=== PATIENT | female | born 1950 | race Caucasian/White ===

== ENCOUNTER → 2016-07-25 | Outpatient (CLI) | payer MEDICARE ==
[2015-12-13 11:49] VITALS: BP 102/51
[~2016-07-25] MED LIST: ALLO100T PO; BUPR150T6 PO; DILT90TA PO; FERR325T58 PO; GABA-587 PO; MULT-208 PO; OXYC10TA PO; SODI650T PO; SPIR25TA3 PO; TRAZ100T12 PO; ZOLP12.52 PO
--- NOTE | 2016-07-25 11:55 | RAD ---
Abdominal ultrasound, 07/25/2016: History: Periumbilical pain The gallbladder is surgically absent. The common hepatic duct measures 9-10 mm which is at the upper limits of normal in size for the postcholecystectomy state. No hepatic mass is seen. The pancreas and central retroperitoneum including the aorta and inferior vena cava were obscured by overlying bowel. The spleen is of normal size. The left kidney is poorly defined with probable parenchymal scarring. There is a 1.2 cm cortical cyst in the left kidney. The right kidney demonstrates a mildly prominent extrarenal pelvis but is otherwise unremarkable. No free fluid is evident in the abdomen. IMPRESSION: 1. Status post cholecystectomy. 2. Small left renal cyst. 3. Obscuration of the pancreas and central retroperitoneum due to overlying bowel. CT scanning may be useful for further evaluation, if clinically indicated.
== END | disposition home or self-care (01) ==
LOC: US 12:49
PROVIDERS: ATTEND Family Medicine
DX: N28.1 Cyst of kidney, acquired (principal); Z90.49 Acquired absence of other specified parts of digestive tract
CPT/HCPCS: 76700

== ENCOUNTER → 2016-08-31 | Outpatient (CLI) | payer MEDICARE ==
[2015-12-13 11:49] VITALS: BP 102/51
[~2016-08-31] MED LIST changes: +CONTRAST GIVEN MC PRN; +IOHEXOL 240 MG/ML 50ML VIAL. IV ONE; +IOHEXOL 300 MG/ML 75 ML VIAL IV ONE
[2016-08-31 10:32] LABS: CREATININE 1.3 mg/dL (0.6-1.0); GFR 41.1
--- NOTE | 2016-08-31 11:55 | RAD ---
Indication periumbilical pain for several months. Axial images through the abdomen and pelvis were obtained. Oral contrast was administered. IV contrast was not. No prior CT imaging of the abdomen is available. The lung bases are clear. There is a foreign body in the ventral abdominal wall likely postsurgical and representing a hernia repair. A significant soft tissue finding is not seen. The liver and spleen appear unremarkable. The stomach is not seen and presumably has been surgically removed. There are masses seen associated with the left kidney compatible with cysts however they are not completely characterized on this noncontrast exam. No adrenal masses are seen. The pancreas appears unremarkable. A mass inflammatory process or acute finding in the abdomen is not seen. There is some air within the urinary bladder. This is likely secondary to recent instrumentation. Clinical correlation advised. IMPRESSION: Absent stomach, presumably post surgical. Foreign body in the ventral abdominal wall likely representing a hernia repair. Masses, probably reflecting cysts, associated with the left kidney Small amount of air in the urinary bladder. This is presumably postinstrumentation. Clinical correlation advised.
== END | disposition home or self-care (01) ==
LOC: CT 08:45
PROVIDERS: ATTEND Internal Medicine
DX: R10.33 Periumbilical pain (principal)
CPT/HCPCS: 36415; 74176; 82565; 84520

== ENCOUNTER → 2017-03-08 | Outpatient (CLI) | payer BC, MEDICARE ==
[2015-12-13 11:49] VITALS: BP 102/51
[~2017-03-08] MED LIST changes: -CONTRAST GIVEN MC PRN; -IOHEXOL 240 MG/ML 50ML VIAL. IV ONE; -IOHEXOL 300 MG/ML 75 ML VIAL IV ONE
[2017-03-08 12:42] LABS: BASO % 1 % (0-3); EOS % 3 % (0-3); HEMATOCRIT 33.2 % (36.0-47.0); LYMPH # 1.8 x10^3/uL (1.0-4.8); LYMPH % 21 % (24-48); MEAN CORPUSCULAR HEMOGLOBIN 31 pg (25-35); MEAN CORPUSCULAR HGB CONC 33 g/dL (31-37); MEAN CORPUSCULAR VOLUME 94 fL (79-100); MONO % 6 % (0-9); NEUT % 70 % (31-73); PLATELET COUNT 278 x10^3/uL (140-400); RED BLOOD COUNT 3.54 x10^6/uL (3.50-5.40); RED CELL DISTRIBUTION WIDTH 14.6 % (11.5-14.5); WHITE BLOOD COUNT 8.6 x10^3/uL (4.0-11.0)
[2017-03-08 13:39] LABS: ALBUMIN 2.6 g/dL (3.4-5.0); ALBUMIN/GLOBULIN RATIO 0.8 (1.0-1.7); CALCIUM 8.4 mg/dL (8.5-10.1); CREATININE 1.5 mg/dL (0.6-1.0); GFR 34.9; POTASSIUM 3.4 mmol/L (3.5-5.1); TOTAL BILIRUBIN 0.4 mg/dL (0.2-1.0); TOTAL PROTEIN 5.8 g/dL (6.4-8.2)
== END | disposition home or self-care (01) ==
LOC: LAB 12:05
PROVIDERS: ATTEND Psychiatry & Neurology Neurology
DX: R53.1 Weakness (principal)
CPT/HCPCS: 36415; 80053; 82550; 82607; 84443; 85025; 85651

== ENCOUNTER → 2017-03-15 | Outpatient (CLI) | payer BC ==
[2015-12-13 11:49] VITALS: BP 102/51
--- NOTE | 2017-03-19 16:20 | EEG ---
DATE OF SERVICE: 03/15/2017 EEG NUMBER: ____ [id number]. OBJECTIVE: This is a 66-year-old female patient with history of memory loss. EEG was requested to evaluate cerebral activity. METHODS: Twenty electrodes were applied according to the international 10-20 electrode placement system. EKG monitoring, hyperventilation, intermittent photic stimulation, monopolar and bipolar montages are routinely utilized. The record was obtained on a digital system with video monitoring. FINDINGS: 1. Background: The patient was recorded in the awake, drowsy, and sleep states. The overall background amplitude is 10-25 microvolts. A posterior dominant rhythm of 7-8 Hz is observed. 2. Abnormalities: No specific epileptiform discharge or electrographic seizure is seen. No focal or diffuse slowing. 3. Activation: Hyperventilation was performed with good efforts and normal response. Intermittent photic stimulation was performed with photic driving. IMPRESSION: This EEG falls into the abnormal category of the study for the awake, drowsy, and sleep states. The posterior dominant rhythm of 7-8 Hz is mildly abnormal for age. No focal, lateralizing, specific epileptiform discharge, or electrographic seizure is seen. SHARITA HOLLINGSWORTH MD DR: AWILDA/faraz JOB#: [id number] / [id number] SANDEEP
== END | disposition home or self-care (01) ==
LOC: RT 10:10
PROVIDERS: ATTEND Psychiatry & Neurology Neurology
DX: R41.3 Other amnesia (principal); R06.4 Hyperventilation
CPT/HCPCS: 95816

== ENCOUNTER 2017-07-03 10:05 | Emergency (ER) | payer BC ==
[~2017-07-03] VITALS: Ht 157.5 cm; Wt 57.6 kg
[2017-07-03] MEDS ORDERED: ONDANSETRON ODT 4 MG TAB.RAPDIS. PO ONE (11:00)
[2017-07-03 11:28] LABS: BASO % 0 % (0-3); EOS % 0 % (0-3); HEMATOCRIT 36.2 % (36.0-47.0); HEMOGLOBIN 12.1 g/dL (12.0-15.5); LYMPH # 1.3 x10^3/uL (1.0-4.8); LYMPH % 15 % (24-48); MEAN CORPUSCULAR HEMOGLOBIN 32 pg (25-35); MEAN CORPUSCULAR HGB CONC 33 g/dL (31-37); MEAN CORPUSCULAR VOLUME 95 fL (79-100); MONO % 5 % (0-9); NEUT % 80 % (31-73); PLATELET COUNT 292 x10^3/uL (140-400); RED BLOOD COUNT 3.83 x10^6/uL (3.50-5.40); RED CELL DISTRIBUTION WIDTH 13.5 % (11.5-14.5); WHITE BLOOD COUNT 8.8 x10^3/uL (4.0-11.0)
[2017-07-03 11:41] LABS: CALCIUM 8.4 mg/dL (8.5-10.1); CREATININE 0.8 mg/dL (0.6-1.0); GFR 71.8; POTASSIUM 3.2 mmol/L (3.5-5.1)
[2017-07-03 11:49] LABS: BILIRUBIN,URINE NEGATIVE (NEG); GLUCOSE,URINE NEGATIVE (NEG); NITRITE,URINE POSITIVE (NEG); PROTEIN,URINE NEGATIVE (NEG-TRACE)
[2017-07-03 11:49] LABS: ALBUMIN 2.3 g/dL (3.4-5.0); ALBUMIN/GLOBULIN RATIO 0.6 (1.0-1.7); TOTAL BILIRUBIN 0.5 mg/dL (0.2-1.0); TOTAL PROTEIN 6.1 g/dL (6.4-8.2)
[2017-07-03 11:58] LABS: BACTERIA,URINE MANY /HPF (0-FEW)
[2017-07-03 11:59] LABS: RBC,URINE 0 /HPF (0-2); SQUAMOUS EPITHELIAL CELL,UR MOD /LPF
[2017-07-03 12:00] VITALS: BP 126/78
[2017-07-03] MEDS ORDERED: fentaNYL PF VIAL 100 MCG/2 ML VIAL IV PRN (12:15)
[2017-07-03] MEDS ORDERED: CONTRAST GIVEN MC PRN (12:15)
[2017-07-03] MEDS ORDERED: IOHEXOL 300 MG/ML 100ML VIAL. IV ONE (12:15)
[2017-07-03] MEDS ORDERED: ONDANSETRON PF 4 MG/2 ML VIAL. IV ONE (12:15)
--- NOTE | 2017-07-03 12:15 | PHYS DOC ---
Past Medical History Past Medical History: Hypertension, Renal Disease Additional Past Medical Histor: chronic pain Past Surgical History: Knee Replacement Additional Past Surgical Histo: hernia, carpal tunn, foot Alcohol Use: None Drug Use: None Adult General Chief Complaint Chief Complaint: ABDOMINAL PAIN HPI HPI Patient is a 67 year old female who presents with complaint of abdominal pain for the past 5 days. Patient states that the pain is in the middle of her abdomen. The patient states that the pain comes and goes. Patient states currently she is having 10 out of 10 pain. Patient states that the symptoms last for several minutes and then go away but then comes right back shortly after. Patient denies any associated fevers but has had numerous episodes of nausea and vomiting. Patient has not taken any medications to help with symptoms. Patient states that she has not been able to keep fluids down because of her symptoms. Patient states that she has had multiple abdominal surgeries in the past including a cholecystectomy and hernia repair but has not had any recent surgeries. Patient denies any chest pain or shortness of breath with her symptoms. Patient denies any known exacerbating or alleviating factors. Review of Systems Review of Systems Constitutional: Denies fever or chills [] Eyes: Denies change in visual acuity, redness, or eye pain [] HENT: Denies nasal congestion or sore throat [] Respiratory: Denies cough or shortness of breath [] Cardiovascular: Denies chest pain or edema[] GI: Abdominal pain, nausea, vomiting, denies diarrhea[] : Denies dysuria or hematuria [] Musculoskeletal: Denies back pain or joint pain [] Integument: Denies rash or skin lesions [] Neurologic: Denies headache, focal weakness or sensory changes [] All other systems were reviewed and found to be within normal limits, except as documented in this note. Current Medications Current Medications Current Medications Medications (Trade) Dose Ordered Sig/Marlon Start Time Stop Time Status Last Admin Dose Admin Fentanyl Citrate (Fentanyl 2ml Vial) 50 mcg PRN Q15MIN PRN 07/03/17 12:15 07/03/17 14:18 DC 07/03/17 12:10 50 MCG Info (Do NOT chart on this entry -- for MONITORING) 1 each PRN DAILY PRN 07/03/17 12:15 07/03/17 14:18 DC Iohexol (Omnipaque 300 Mg/ml) 75 ml 1X ONCE 07/03/17 12:15 07/03/17 12:16 DC Ondansetron HCl (Zofran Odt) 4 mg 1X ONCE 07/03/17 11:00 07/03/17 11:01 DC 07/03/17 11:24 4 MG Ondansetron HCl (Zofran) 4 mg 1X ONCE 07/03/17 12:15 07/03/17 12:16 DC 07/03/17 12:10 4 MG Allergies Allergies Allergies Coded Allergies Type Severity Reaction Last Updated Verified Penicillins Allergy Intermediate 12/13/15 No erythromycin base Allergy Intermediate 12/13/15 No Physical Exam Physical Exam Constitutional: Alert, afebrile, appears in moderate discomfort. [] HENT: Normocephalic, atraumatic, bilateral external ears normal, oropharynx moist, no oral exudates, nose normal. [] Eyes: PERRLA, EOMI, conjunctiva normal, no discharge. [] Neck: Normal range of motion, no tenderness, supple, no stridor. [] Cardiovascular: Tachycardia, regular rhythm, no murmur [] Lungs & Thorax: Bilateral breath sounds clear to auscultation [] Abdomen: Bowel sounds normal, soft, no tenderness, no masses, no pulsatile masses. [] Skin: Warm, dry, no erythema, no rash. [] Back: No tenderness, no CVA tenderness. [] Extremities: No tenderness, no cyanosis, no clubbing, ROM intact, no edema. [] Neurologic: Alert and oriented X 3, normal motor function, normal sensory function, no focal deficits noted. [] Current Patient Data Vital Signs Vital Signs Date Time Temp Pulse Resp B/P (MAP) Pulse Ox O2 Delivery O2 Flow Rate FiO2 07/03/17 12:00 108 25 126/78 (94) 94 Room Air 07/03/17 10:16 97.8 97.8 Lab Values Laboratory Tests Test 07/03/17 10:17 07/03/17 11:05 07/03/17 11:40 Influenza Type A Antigen Negative (NEGATIVE) Influenza Type B Antigen Negative (NEGATIVE) White Blood Count 8.8 x10^3/uL (4.0-11.0) Red Blood Count 3.83 x10^6/uL (3.50-5.40) Hemoglobin 12.1 g/dL (12.0-15.5) Hematocrit 36.2 % (36.0-47.0) Mean Corpuscular Volume 95 fL (79-100) Mean Corpuscular Hemoglobin 32 pg (25-35) Mean Corpuscular Hemoglobin Concent 33 g/dL (31-37) Red Cell Distribution Width 13.5 % (11.5-14.5) Platelet Count 292 x10^3/uL (140-400) Neutrophils (%) (Auto) 80 % (31-73) H Lymphocytes (%) (Auto) 15 % (24-48) L Monocytes (%) (Auto) 5 % (0-9) Eosinophils (%) (Auto) 0 % (0-3) Basophils (%) (Auto) 0 % (0-3) Neutrophils # (Auto) 7.1 x10^3uL (1.8-7.7) Lymphocytes # (Auto) 1.3 x10^3/uL (1.0-4.8) Monocytes # (Auto) 0.4 x10^3/uL (0.0-1.1) Eosinophils # (Auto) 0.0 x10^3/uL (0.0-0.7) Basophils # (Auto) 0.0 x10^3/uL (0.0-0.2) Sodium Level 133 mmol/L (136-145) L Potassium Level 3.2 mmol/L (3.5-5.1) L Chloride Level 91 mmol/L (98-107) L Carbon Dioxide Level 31 mmol/L (21-32) Anion Gap 11 (6-14) Blood Urea Nitrogen 5 mg/dL (7-20) L Creatinine 0.8 mg/dL (0.6-1.0) Estimated GFR (Cockcroft-Gault) 71.8 BUN/Creatinine Ratio 6 (6-20) Glucose Level 92 mg/dL (70-99) Calcium Level 8.4 mg/dL (8.5-10.1) L Total Bilirubin 0.5 mg/dL (0.2-1.0) Aspartate Amino Transferase (AST) 64 U/L (15-37) H Alanine Aminotransferase (ALT) 39 U/L (14-59) Alkaline Phosphatase 148 U/L (46-116) H Total Protein 6.1 g/dL (6.4-8.2) L Albumin 2.3 g/dL (3.4-5.0) L Albumin/Globulin Ratio 0.6 (1.0-1.7) L Lipase 107 U/L (73-393) Urine Collection Type Unknown Urine Color Yellow Urine Clarity Cloudy Urine pH 8.0 Urine Specific [place] 1.015 Urine Protein Negative mg/dL (NEG-TRACE) Urine Glucose (UA) Negative mg/dL (NEG) Urine Ketones (Stick) Trace mg/dL (NEG) Urine Blood Negative (NEG) Urine Nitrite Positive (NEG) Urine Bilirubin Negative (NEG) Urine Urobilinogen Dipstick 1.0 mg/dL (0.2 mg/dL) Urine Leukocyte Esterase Small (NEG) Urine RBC 0 /HPF (0-2) Urine WBC 5-10 /HPF (0-4) Urine Squamous Epithelial Cells Mod /LPF Urine Bacteria Many /HPF (0-FEW) Laboratory Tests 07/03/17 11:05 Laboratory Tests 07/03/17 11:05 EKG EKG Not performed[] Radiology/Procedures Radiology/Procedures [facility] [id number] [facility] [place], [place] [id number] IMAGING REPORT Signed PATIENT: BROOKE SOARES ACCOUNT: [id number] : 1950 LOCATION: ER AGE: 67 SEX: F EXAM STATUS: REG ER ORD. PHYSICIAN: LISA MONTEJO MD REASON: abdominal pain PROCEDURE: CT ABD PELV W/ IV CONTRST ONLY Indication: Nausea, vomiting, and diarrhea for 5 days. Technique: Axial images and coronal and sagittal reformatted images are provided. 75 mL of intravenous Omnipaque 300 was administered without complication. Comparison is from August 31, 2016. One or more of the following individualized dose reduction techniques were utilized for this examination: 1. Automated exposure control 2. Adjustment of the mA and/or kV according to patient size 3. Use of iterative reconstruction technique Findings: There is lingular atelectasis or scarring. A few vague groundglass nodules are noted in the left lower lobe up to 8 mm in size. The heart is not enlarged. There are postsurgical changes at the GE junction. Liver is normal in appearance. Gallbladder is contracted or absent. Spleen is not enlarged. Pancreas is fatty replaced. There is no adrenal mass. There is atheromatous disease in the abdominal aorta. Kidneys are symmetrically perfused. Probable cyst in the left kidney is stable. Lack of oral contrast limits evaluation of bowel. There is no small bowel obstruction or mural thickening. There is apparent mural thickening involving the ascending and proximal transverse colon. There is adjacent stranding of the fat. Colon is not well distended which limits evaluation. There may also be mural thickening in the descending and sigmoid colon versus incomplete distention. There are a few diverticula in the left-sided colon. There is no abscess or free air. There appears to have been ventral hernia repair. There are calcified phleboliths. Uterus is presumed absent. Bladder is unremarkable. There are degenerative changes in the spine. Impression: 1. Suspected mural thickening throughout the colon. Please correlate with any concern for pancolitis. Given degree of distention, evaluation is limited. There is no abscess or free air. 2. Groundglass nodules in the left lower lobe. Per Fleischner Society 2017 recommendations, 3-6 month follow-up is recommended. DICTATED and SIGNED BY: JERMAIN LYONS MD DATE: 07/03/17 1231 CC: LISA MONTEJO MD; TAE BOWLING MD ~ [] Course & Med Decision Making Course & Med Decision Making Pertinent Labs and Imaging studies reviewed. (See chart for details) Patient was given IV fluids, fentanyl, and Zofran. The patient's emergency department workup shows no evidence of acute intestinal obstruction. The patient does show thickening through the colon that may be due to colitis. This could be viral or bacterial. The patient's urinalysis also shows evidence of urinary tract infection. The patient will be started on oral Levaquin and patient was advised follow-up with primary doctor in the next 2-3 days for reevaluation. Patient discharged as well with hydrocodone and Zofran for symptomatic control. Advised return emergency department for any worsening symptoms. Patient voiced understanding and in agreement with treatment plan. Dragon Disclaimer Dragon Disclaimer This electronic medical record was generated, in whole or in part, using a voice recognition dictation system. Departure Departure Impression: Primary Impression: Colitis Additional Impression: Urinary tract infection Disposition: 01 HOME, SELF-CARE Condition: IMPROVED Referrals: TAE BOWLING MD (PCP) Patient Instructions: Colitis, Urinary Tract Infection Additional Instructions: Follow-up with your primary doctor in 2-3 days for reevaluation. Return to the emergency department for any worsening symptoms. Scripts Ondansetron (ZOFRAN ODT) 4 Mg Tab.rapdis 1 TAB SL Q8HRS Y for NAUSEA/VOMITING, #15 TAB Prov: LISA MONTEJO MD 07/03/17 Hydrocodone/Apap 5-325 (NORCO 5-325 TABLET) 1 Each Tablet 1-2 TAB PO Q4-6HRS Y for PAIN, #20 TAB Prov: LISA MONTEJO MD 07/03/17 Levofloxacin (LEVAQUIN) 500 Mg Tablet 1 TAB PO DAILY, #7 TAB Prov: LISA MONTEJO MD 07/03/17 Problem Qualifiers Additional Impression: Urinary tract infection Urinary tract infection type: site unspecified Hematuria presence: without hematuria Qualified Codes: N39.0 - Urinary tract infection, site not specified LISA MONTEJO MD Jul 03, 2017 12:15
[2017-07-03 12:29] LABS: OBC FLU VALID
--- NOTE | 2017-07-03 12:48 | RAD ---
Indication: Nausea, vomiting, and diarrhea for 5 days. Technique: Axial images and coronal and sagittal reformatted images are provided. 75 mL of intravenous Omnipaque 300 was administered without complication. Comparison is from August 31, 2016. One or more of the following individualized dose reduction techniques were utilized for this examination: 1. Automated exposure control 2. Adjustment of the mA and/or kV according to patient size 3. Use of iterative reconstruction technique Findings: There is lingular atelectasis or scarring. A few vague groundglass nodules are noted in the left lower lobe up to 8 mm in size. The heart is not enlarged. There are postsurgical changes at the GE junction. Liver is normal in appearance. Gallbladder is contracted or absent. Spleen is not enlarged. Pancreas is fatty replaced. There is no adrenal mass. There is atheromatous disease in the abdominal aorta. Kidneys are symmetrically perfused. Probable cyst in the left kidney is stable. Lack of oral contrast limits evaluation of bowel. There is no small bowel obstruction or mural thickening. There is apparent mural thickening involving the ascending and proximal transverse colon. There is adjacent stranding of the fat. Colon is not well distended which limits evaluation. There may also be mural thickening in the descending and sigmoid colon versus incomplete distention. There are a few diverticula in the left-sided colon. There is no abscess or free air. There appears to have been ventral hernia repair. There are calcified phleboliths. Uterus is presumed absent. Bladder is unremarkable. There are degenerative changes in the spine. Impression: 1. Suspected mural thickening throughout the colon. Please correlate with any concern for pancolitis. Given degree of distention, evaluation is limited. There is no abscess or free air. 2. Groundglass nodules in the left lower lobe. Per Fleischner Society 2017 recommendations, 3-6 month follow-up is recommended.
[2017-07-03] MEDS ORDERED: ONDA4TAB10 SL (13:19)
[2017-07-03] MEDS ORDERED: LEVO500T59 PO (13:19)
[2017-07-03] MEDS ORDERED: HYDR-971 PO (13:19)
== END 2017-07-03 14:12 | disposition home or self-care (01) ==
LOC: ER 10:05
DX: K52.9 Noninfective gastroenteritis and colitis, unspecified (principal); N39.0 Urinary tract infection, site not specified; G89.29 Other chronic pain; I12.9 Hypertensive chronic kidney disease with stage 1 through stage 4 chronic kidney disease, or unspecified chronic kidney disease; N18.9 Chronic kidney disease, unspecified; Z96.659 Presence of unspecified artificial knee joint; Z90.49 Acquired absence of other specified parts of digestive tract; Z88.0 Allergy status to penicillin; Z88.1 Allergy status to other antibiotic agents
CPT/HCPCS: 36415; 74177; 80053; 81001; 83690; 85025; 87086; 87804; 96374; 96375; 99285; J2405; J3010; Q0162

== ENCOUNTER 2017-07-06 12:53 | Inpatient (IN) | payer BC ==
[~2017-07-06] VITALS: Ht 157.5 cm; Wt 57.6 kg
[~2017-07-06 12:53] MED LIST changes: +HYDR-971 PO; +LEVO500T59 PO; +ONDA4TAB10 SL
[2017-07-06] MEDS ORDERED: ONDANSETRON PF 4 MG/2 ML VIAL. IV ONE (13:30)
[2017-07-06] MEDS ORDERED: DICYCLOMINE HCL 10 MG CAPSULE PO ONE (13:30)
[2017-07-06] MEDS ORDERED: IV NORMAL SALINE 1000ML BAG 1,000 ML IV ONE (13:30)
--- NOTE | 2017-07-06 13:33 | PHYS DOC ---
Past Medical History Past Medical History: Hypertension, Renal Disease Additional Past Medical Histor: chronic pain Past Surgical History: Knee Replacement Additional Past Surgical Histo: hernia, carpal tunn, foot Alcohol Use: None Drug Use: None Adult General Chief Complaint Chief Complaint: NAUSEA/VOMITING/DIARRHA HPI HPI Patient is a 67 year old female with history of hypertension, renal disease, who presents today with nausea vomiting and diarrhea that began one week ago. Patient was seen in the ED 4 days ago for same complaint. She was worked up and was noted to have colitis. She was discharged to home. Patient states the symptoms have worsened. She states she is gotten weak that she fell down twice today. Patient denies any loss of consciousness when she fell. She is complaining of left hip and coccyx pain. Patient denies any hematemesis or melena. Review of Systems Review of Systems Constitutional: Denies fever or chills [] Eyes: Denies change in visual acuity, redness, or eye pain [] HENT: Denies nasal congestion or sore throat [] Respiratory: Denies cough or shortness of breath [] Cardiovascular: No additional information not addressed in HPI [] GI: Abdominal pain nausea vomiting and diarrhea : Denies dysuria or hematuria [] Musculoskeletal: Left hip and coccyx pain Integument: Denies rash or skin lesions [] Neurologic: Denies headache, focal weakness or sensory changes [] All other systems were reviewed and found to be within normal limits, except as documented in this note. Current Medications Current Medications Current Medications Medications (Trade) Dose Ordered Sig/Marlon Start Time Stop Time Status Last Admin Dose Admin Dicyclomine HCl (Bentyl) 20 mg 1X ONCE 07/06/17 13:30 07/06/17 13:32 DC 07/06/17 14:30 20 MG Metronidazole 100 ml @ 100 mls/hr 1X ONCE 07/06/17 16:15 07/06/17 17:14 07/06/17 16:12 100 MLS/HR Morphine Sulfate 2 mg PRN Q2HR PRN 07/06/17 16:00 07/07/17 15:59 07/06/17 16:13 2 MG Ondansetron HCl (Zofran) 4 mg PRN Q8HRS PRN 07/06/17 16:00 07/07/17 15:59 Potassium Chloride 10 meq/ Sodium Chloride 105 ml @ 105 mls/hr Q1H 12/15/17 16:00 07/06/17 19:59 07/06/17 16:13 105 MLS/HR Sodium Chloride 1,000 ml @ 1,000 mls/hr 1X ONCE 07/06/17 13:30 07/06/17 14:29 DC 07/06/17 14:30 1,000 MLS/HR Allergies Allergies Allergies Coded Allergies Type Severity Reaction Last Updated Verified Penicillins Allergy Intermediate 12/13/15 No erythromycin base Allergy Intermediate 12/13/15 No Physical Exam Physical Exam Constitutional: Well developed, no acute distress, non-toxic appearance. Patient appears dehydrated. Her mucous membranes are dry. HENT: Normocephalic, atraumatic, bilateral external ears normal, oropharynx moist, no oral exudates, nose normal. [] Eyes: PERRLA, EOMI, conjunctiva normal, no discharge. [] Neck: Normal range of motion, no tenderness, supple, no stridor. [] Cardiovascular:Heart rate regular rhythm, no murmur [] Lungs & Thorax: Bilateral breath sounds clear to auscultation [] Abdomen: Bowel sounds normal, soft, diffuse tenderness throughout the abdomen. No masses, no pulsatile masses. [] Skin: Warm, dry, bruises noted on the low back as well as chin. Back: No tenderness, no CVA tenderness. [] Extremities: Left lateral hip tenderness on exam. Tenderness noted to the coccyx during exam. Limited range of motion to the left hip due to pain especially external rotation. Adequate flexion and extension of the left lower extremity. +2 left pedal pulse. Cap refill less than 2 seconds the left toes. Neurologic: Alert and oriented X 3, normal motor function, normal sensory function, no focal deficits noted. [] Psychologic: Affect normal, judgement normal, mood normal. [] Current Patient Data Vital Signs Vital Signs Date Time Temp Pulse Resp B/P (MAP) Pulse Ox O2 Delivery O2 Flow Rate FiO2 07/06/17 16:13 Room Air 07/06/17 13:05 98.7 95 10 171/79 (109) 99 98.7 Lab Values Laboratory Tests Test 07/06/17 14:20 07/06/17 14:30 Urine Collection Type U cath Urine Color Yellow Urine Clarity Clear Urine pH 8.0 Urine Specific [place] 1.010 Urine Protein Negative mg/dL (NEG-TRACE) Urine Glucose (UA) Negative mg/dL (NEG) Urine Ketones (Stick) Trace mg/dL (NEG) Urine Blood Negative (NEG) Urine Nitrite Negative (NEG) Urine Bilirubin Negative (NEG) Urine Urobilinogen Dipstick 0.2 mg/dL (0.2 mg/dL) Urine Leukocyte Esterase Negative (NEG) Urine RBC 0 /HPF (0-2) Urine WBC 0 /HPF (0-4) Urine Squamous Epithelial Cells Occ /LPF Urine Bacteria 0 /HPF (0-FEW) White Blood Count 7.9 x10^3/uL (4.0-11.0) Red Blood Count 3.56 x10^6/uL (3.50-5.40) Hemoglobin 11.1 g/dL (12.0-15.5) L Hematocrit 33.2 % (36.0-47.0) L Mean Corpuscular Volume 93 fL (79-100) Mean Corpuscular Hemoglobin 31 pg (25-35) Mean Corpuscular Hemoglobin Concent 34 g/dL (31-37) Red Cell Distribution Width 13.7 % (11.5-14.5) Platelet Count 294 x10^3/uL (140-400) Neutrophils (%) (Auto) 74 % (31-73) H Lymphocytes (%) (Auto) 17 % (24-48) L Monocytes (%) (Auto) 8 % (0-9) Eosinophils (%) (Auto) 0 % (0-3) Basophils (%) (Auto) 0 % (0-3) Neutrophils # (Auto) 5.9 x10^3uL (1.8-7.7) Lymphocytes # (Auto) 1.3 x10^3/uL (1.0-4.8) Monocytes # (Auto) 0.7 x10^3/uL (0.0-1.1) Eosinophils # (Auto) 0.0 x10^3/uL (0.0-0.7) Basophils # (Auto) 0.0 x10^3/uL (0.0-0.2) Prothrombin Time 13.7 SEC (11.7-14.0) Prothrombin Time INR 1.1 (0.8-1.1) Sodium Level 135 mmol/L (136-145) L Potassium Level 2.4 mmol/L (3.5-5.1) *L Chloride Level 92 mmol/L (98-107) L Carbon Dioxide Level 35 mmol/L (21-32) H Anion Gap 8 (6-14) Blood Urea Nitrogen 4 mg/dL (7-20) L Creatinine 1.1 mg/dL (0.6-1.0) H Estimated GFR (Cockcroft-Gault) 49.7 BUN/Creatinine Ratio 4 (6-20) L Glucose Level 77 mg/dL (70-99) Calcium Level 8.4 mg/dL (8.5-10.1) L Magnesium Level 1.6 mg/dL (1.8-2.4) L Total Bilirubin 0.3 mg/dL (0.2-1.0) Aspartate Amino Transferase (AST) 45 U/L (15-37) H Alanine Aminotransferase (ALT) 36 U/L (14-59) Alkaline Phosphatase 121 U/L (46-116) H Creatine Kinase 248 U/L (26-192) H Creatine Kinase MB (Mass) 6.7 ng/mL (0.0-3.6) H Creatine Kinase MB Relative Index 2.7 % (0-4) BK-Ico-S-Type Natriuretic Peptide 22522 pg/mL (0-124) H Total Protein 5.4 g/dL (6.4-8.2) L Albumin 2.1 g/dL (3.4-5.0) L Albumin/Globulin Ratio 0.6 (1.0-1.7) L Lipase 88 U/L (73-393) Thyroid Stimulating Hormone (TSH) 1.516 uIU/mL (0.358-3.74) Laboratory Tests 07/06/17 14:30 Laboratory Tests 07/06/17 14:30 EKG EKG [] Radiology/Procedures Radiology/Procedures [] Course & Med Decision Making Course & Med Decision Making Pertinent Labs and Imaging studies reviewed. (See chart for details) Patient is in the ED with nausea vomiting and diarrhea that began one week ago. She was diagnosed with colitis 4 days ago and was sent home on Levaquin and Zofran. She has fallen twice today. She is complaining of left hip and coccyx pain. CBC with normal WBC. CMP with potassium of 2.4. X-rays of the lumbar spine as well as left hip with pelvic interpreted by radiologist are negative for any acute findings. Consulted with Dr. Cespedes who accepted patient for admission. Routine Consult placed for GI as well as infectious disease. She requested we start patient on Flagyl. Dragon Disclaimer Dragon Disclaimer This electronic medical record was generated, in whole or in part, using a voice recognition dictation system. Departure Departure Impression: Primary Impression: Colitis Additional Impressions: Fall from standing Hypokalemia Disposition: ADMITTED INPATIENT Condition: STABLE Referrals: TAE BOWLING MD (PCP) Problem Qualifiers Additional Impressions: Fall from standing Encounter type: initial encounter Qualified Codes: W19.XXXA - Unspecified fall, initial encounter MYRONALAYNA DANIELS [employer] Jul 06, 2017 13:33
--- NOTE | 2017-07-06 14:22 | RAD ---
Single view of the Chest 07/06/2017 3:26 PM Indication: chest pain from 2 falls during the night, pt. complaints of pain everywhere Comparison: Chest radiograph May 01, 2017 Findings: There is no focal consolidation or infiltrate identified. There is no effusion or pneumothorax. The cardiomediastinal silhouette and pulmonary vasculature are within normal limits. No osseous abnormality is identified. Impression: No evidence of acute cardiopulmonary process.
--- NOTE | 2017-07-06 14:23 | RAD ---
Indication: Left hip pain after a fall. Technique: 2 views of the left hip and an AP view the pelvis are submitted for review. No comparison is available. Findings: There is bone demineralization. There is no fracture or dislocation. Bony pelvis appears intact. Presumed injection granulomas are noted on the right. Impression: Negative for left hip fracture.
--- NOTE | 2017-07-06 14:25 | RAD ---
3 views of the lumbar spine 07/06/2017 Indication: Back pain following fall Comparison study: CT of the abdomen and pelvis number 07/11/2017 Findings: No evidence of acute fracture or alignment abnormality is identified. Vertebral body heights are preserved with respect comparison studies. This includes a chronic compression deformity at T12. Diffuse osteopenia. To be present. There is a dextrocurvature of the lumbar spine. Mild diffuse degenerative disc space narrowing and moderate lumbar facet arthrosis is noted. An acute soft tissue changes not identified in the interim since comparison study. Impression: Stable degenerative changes of the lumbar spine without evidence of acute fracture or alignment abnormality
[2017-07-06 14:31] LABS: BILIRUBIN,URINE NEGATIVE (NEG); GLUCOSE,URINE NEGATIVE (NEG); NITRITE,URINE NEGATIVE (NEG); PROTEIN,URINE NEGATIVE (NEG-TRACE); UROBILINOGEN,URINE 0.2 mg/dL (0.2 mg/dL)
[2017-07-06 14:38] LABS: BASO % 0 % (0-3); EOS % 0 % (0-3); HEMATOCRIT 33.2 % (36.0-47.0); HEMOGLOBIN 11.1 g/dL (12.0-15.5); LYMPH # 1.3 x10^3/uL (1.0-4.8); LYMPH % 17 % (24-48); MEAN CORPUSCULAR HEMOGLOBIN 31 pg (25-35); MEAN CORPUSCULAR HGB CONC 34 g/dL (31-37); MEAN CORPUSCULAR VOLUME 93 fL (79-100); MONO % 8 % (0-9); NEUT % 74 % (31-73); PLATELET COUNT 294 x10^3/uL (140-400); RED BLOOD COUNT 3.56 x10^6/uL (3.50-5.40); RED CELL DISTRIBUTION WIDTH 13.7 % (11.5-14.5); WHITE BLOOD COUNT 7.9 x10^3/uL (4.0-11.0)
--- NOTE | 2017-07-06 14:41 | EKG ---
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
[2017-07-06 14:47] LABS: BACTERIA,URINE 0 /HPF (0-FEW); RBC,URINE 0 /HPF (0-2); SQUAMOUS EPITHELIAL CELL,UR OCC /LPF; WBC,URINE 0 /HPF (0-4)
[2017-07-06 14:53] LABS: INR 1.1 (0.8-1.1); PROTHROMBIN TIME PATIENT 13.7 SEC (11.7-14.0)
[2017-07-06 14:57] LABS: ALBUMIN 2.1 g/dL (3.4-5.0); ALBUMIN/GLOBULIN RATIO 0.6 (1.0-1.7); CALCIUM 8.4 mg/dL (8.5-10.1); CREATININE 1.1 mg/dL (0.6-1.0); GFR 49.7; MAGNESIUM 1.6 mg/dL (1.8-2.4); TOTAL BILIRUBIN 0.3 mg/dL (0.2-1.0); TOTAL PROTEIN 5.4 g/dL (6.4-8.2)
[2017-07-06 15:02] LABS: POTASSIUM 2.4 mmol/L (3.5-5.1)
[2017-07-06 15:04] LABS: CKMB MASS 6.7 ng/mL (0.0-3.6)
--- NOTE | 2017-07-06 15:25 | RAD ---
Indication: Pain and fall, dizziness. Technique: Noncontrast CT head was obtained. CT cervical spine includes axial images and coronal and sagittal reformatted images. Comparison CT head is from September 25, 2011. One or more of the following individualized dose reduction techniques were utilized for this examination: 1. Automated exposure control 2. Adjustment of the mA and/or kV according to patient size 3. Use of iterative reconstruction technique Findings: Head: There is prominence of the ventricles and sulci. This is symmetric and within normal limits for age. A few areas of decreased attenuation in the supratentorial white matter are nonspecific but most suggestive of minimal small vessel ischemic disease. There is no acute intracranial hemorrhage or extra axial fluid collection. There is no mass effect or midline shift. Christian-white differentiation is preserved. There is no depressed skull fracture. Right maxillary sinus is nearly completely opacified. Cervical spine: There is no fracture or dislocation. 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 Prevertebral soft tissues are within normal limits. Craniovertebral junction is unremarkable. Disc osteophyte complexes and uncinate process spurring are noted, greatest at C5-C6 and C6-C7. Facet hypertrophy is greatest on the right at C3-C4 and C4-C5. There is probably mild canal stenosis at C5-C6 and C6-C7. There are several levels of foraminal narrowing suspected. Lung apices are clear. Impression: 1. No acute intracranial findings. 2. Negative for fracture or dislocation in the cervical spine. 3. Brain parenchymal volume loss and minimal probable small vessel ischemic disease. 4. Moderate degenerative changes in the cervical spine.
--- NOTE | 2017-07-06 15:40 | RAD ---
Right ankle, 3 views, 07/06/2017: History: Pain The bony structures are demineralized. No acute fracture or dislocation is identified. Tiny calcific densities at the tips of the medial and lateral malleolus are probably old. There is minimal spurring at the ankle joint. IMPRESSION: No acute bony abnormality is detected.
[2017-07-06] MEDS ORDERED: ONDANSETRON PF 4 MG/2 ML VIAL. IV PRN (16:00)
[2017-07-06] MEDS: POTASSIUM CHLORIDE 10 MEQ in IV NORMAL SALINE 100ML 100 ML IV SCH ×4 (16:13→21:10)
[2017-07-06] MEDS: MORPHINE SULFATE 2 MG/ML DISP.SYRIN. IV PRN ×2 (16:13→20:28)
[2017-07-06 19:00] VITALS: BP 130/74
[2017-07-06] MEDS: traZODone 100 MG TABLET. PO SCH (22:12)
[2017-07-06] MEDS: SODIUM BICARBONATE 650 MG TABLET. PO SCH (22:12)
[2017-07-06] MEDS: buPROPion XL 150 MG TAB.ER.24H. PO SCH (22:12)
[2017-07-06] MEDS: ALLOPURINOL 100 MG TABLET. PO SCH (22:12)
[2017-07-06] MEDS: ZOLPIDEM 5 MG TABLET. PO SCH (22:12)
[2017-07-06] MEDS: GABAPENTIN 400 MG CAPSULE. PO SCH (22:12)
[2017-07-06] MEDS: oxyCODONE IR 5 MG TABLET PO PRN (22:13)
[2017-07-06] MEDS: dilTIAZem HCL 30 MG TABLET PO SCH (22:14)
[2017-07-06 23:06] VITALS: BP 136/78
[2017-07-07 03:15] VITALS: BP 94/64
[2017-07-07 05:19] LABS: BASO % 0 % (0-3); EOS % 1 % (0-3); HEMATOCRIT 28.3 % (36.0-47.0); HEMOGLOBIN 9.2 g/dL (12.0-15.5); LYMPH # 1.8 x10^3/uL (1.0-4.8); LYMPH % 35 % (24-48); MEAN CORPUSCULAR HEMOGLOBIN 31 pg (25-35); MEAN CORPUSCULAR HGB CONC 33 g/dL (31-37); MEAN CORPUSCULAR VOLUME 96 fL (79-100); MONO % 9 % (0-9); NEUT % 54 % (31-73); PLATELET COUNT 226 x10^3/uL (140-400); RED BLOOD COUNT 2.94 x10^6/uL (3.50-5.40); RED CELL DISTRIBUTION WIDTH 14.1 % (11.5-14.5); WHITE BLOOD COUNT 5.2 x10^3/uL (4.0-11.0)
[2017-07-07] MEDS: dilTIAZem HCL 30 MG TABLET PO SCH (06:00)
[2017-07-07 06:02] LABS: ALBUMIN 1.5 g/dL (3.4-5.0); ALBUMIN/GLOBULIN RATIO 0.5 (1.0-1.7); CALCIUM 7.8 mg/dL (8.5-10.1); CREATININE 0.9 mg/dL (0.6-1.0); GFR 62.6; TOTAL BILIRUBIN 0.3 mg/dL (0.2-1.0); TOTAL PROTEIN 4.4 g/dL (6.4-8.2)
[2017-07-07 06:08] LABS: POTASSIUM 2.9 mmol/L (3.5-5.1)
[2017-07-07] MEDS ORDERED: POTASSIUM CHLORIDE 20 MEQ TABLET.ER. PO ONE ×2 (06:30→12:00)
[2017-07-07 07:00] VITALS: BP 91/46
[2017-07-07] MEDS ORDERED: FERROUS SULFATE 325 MG TABLET. PO SCH (09:00)
--- NOTE | 2017-07-07 09:34 | PDOC ---
Provider Note Provider Note [id number] TD DE MD Jul 07, 2017 09:34
--- NOTE | 2017-07-07 09:48 | HP ---
ADMIT DATE: 07/07/2017 CHIEF COMPLAINT: Vomiting and diarrhea. HISTORY OF PRESENT ILLNESS: A 67-year-old patient of Dr. Horan has a history of recent onset of nonbloody diarrhea, vomiting and generalized weakness. She has had some falls in the home and has bruised her knee and grossman and tailbone and x-rays did not show any sign of fracture. She has not had any recent exposure to illness. No recent travel, new medications, antibiotics or other obvious precipitants of diarrhea. PAST MEDICAL HISTORY: Total knee replacement on the right side. MEDICATIONS: Including diltiazem, which she says is for her "heart," but she has never had a heart attack or bypass or a stent placement. Rest of meds are for pain, depression nerve pain and sleep. ALLERGIES: LISTED TO PENICILLIN AND ERYTHROMYCIN NOTED. SOCIAL HISTORY: Lives with , nonsmoker, nondrinker. FAMILY HISTORY: Unremarkable. REVIEW OF SYSTEMS: No other complaints. PHYSICAL EXAMINATION: ENT: Tongue is very dry. TMs and pharynx are clear. No icterus is seen. NECK: Revealed no JVD, nodes or masses. LUNGS: Clear, without tachypnea. CARDIOVASCULAR: Regular rate. Heart tones distant. No murmurs heard. ABDOMEN: Diffusely tender. No guarding, masses, rebound, or distention. EXTREMITIES: Decreased pedal pulses. She has bruising on the left medial knee, left elbow. SKIN: Turgor mildly decreased. NEUROLOGIC: Physiologic, alert, appropriate, responsive, uncomfortable, nonfocal. ASSESSMENT: Vomiting, diarrhea, etiology unclear. Appears to be dehydrated, although the lab does not support that. "Colitis" was noted on CT scan, but stool studies are pending. She is hypokalemic and mildly hypotensive. PLAN: Hold diltiazem regarding blood pressure. We will continue hydration with a PICC line and get a C. diff study along with other studies that were ordered and supportive care. TD DE MD DR: JOANNA/faraz JOB#: [id number] / [id number]
[2017-07-07] MEDS ORDERED: POTASSIUM CL 40MEQ D5-0.45NACL 1,000 ML IV ONE (10:00)
[2017-07-07 10:56] VITALS: BP 102/62
[2017-07-07] MEDS: SODIUM BICARBONATE 650 MG TABLET. PO SCH ×3 (11:53→20:48)
[2017-07-07] MEDS: buPROPion XL 150 MG TAB.ER.24H. PO SCH ×2 (11:53→20:47)
[2017-07-07] MEDS: ALLOPURINOL 100 MG TABLET. PO SCH ×2 (11:53→20:47)
[2017-07-07] MEDS: GABAPENTIN 400 MG CAPSULE. PO SCH ×3 (11:53→20:47)
[2017-07-07] MEDS: MULTIVITAMIN with MINERAL TABLET. PO SCH (11:54)
[2017-07-07] MEDS: oxyCODONE IR 5 MG TABLET PO PRN (11:55)
--- NOTE | 2017-07-07 12:04 | PDOC2 ---
GI CONSULT Date Date/Time DATE: 07/07/17 TIME: 11:56 Providers Attending Physician Everett Cespedes MD Referring Physician Consulting Physician Dr. Mccollum History of Present Illness HPI 67 WF- with chronic history of intermittant n/v with some diarrhea in past- unclear on treatment but apparently had EGD 2 years ago- results?-- now with 4 -5 days of n/v and diarrhea- no bleeding, no fever or chills. Seen in ER on Sunday- colitis on CT suggestive of infection- negative Flu screen- no stools able to be obtained then and none today in spite of severe diarrhea history. No recent change in meds, no antibotics- no documented history of GI infections. Poor historian. Also with diffuse abd cramping and tenderness History Past Medical History depression heart disease? chronic nausea and dyspepsia Review of Systems Constitutional: yes: weakness Gastrointestinal: Yes: nausea, vomiting, diarrhea, abdominal pain Psychiatric/Neurological: Yes: weakness Allergies Allergies Allergies Coded Allergies Type Severity Reaction Last Updated Verified Penicillins Allergy Intermediate 07/07/17 Yes erythromycin base Allergy Intermediate 07/07/17 Yes Medications Medications Current Medications Sodium Chloride 1,000 ml @ 1,000 mls/hr 1X ONCE IV Last administered on 07/06 14:30; Start 07/06/17 at 13:30; Stop 07/06/17 at 14:29; Status DC Ondansetron HCl (Zofran) 4 mg 1X ONCE IV Last administered on 07/06/17 14:30 ; Start 07/06/17 at 13:30; Stop 07/06/17 at 13:32; Status DC Dicyclomine HCl (Bentyl) 20 mg 1X ONCE PO Last administered on 07/06/17 14: 30; Start 07/06/17 at 13:30; Stop 07/06/17 at 13:32; Status DC Potassium Chloride 10 meq/ Sodium Chloride 105 ml @ 105 mls/hr Q1H IV Last administered on 07/06/17 21:10; Start 07/06/17 at 16:00; Stop 07/06/17 at 19 :59; Status DC Ondansetron HCl (Zofran) 4 mg PRN Q8HRS PRN IV NAUSEA/VOMITING Last administered on 07/06/17 20:27; Start 07/06/17 at 16:00; Stop 07/07/17 at 15 :59 Morphine Sulfate 2 mg PRN Q2HR PRN IV PAIN Last administered on 07/06/17 20: 28; Start 07/06/17 at 16:00; Stop 07/07/17 at 15:59 Metronidazole 100 ml @ 100 mls/hr Q8HRS IV Last administered on 07/07/17 06: 32; Start 07/06/17 at 22:00 Metronidazole 100 ml @ 100 mls/hr 1X ONCE IV Last administered on 07/06/17 16:12; Start 07/06/17 at 16:15; Stop 07/06/17 at 17:14; Status DC Allopurinol (Zyloprim) 100 mg BID PO Last administered on 07/06/17 22:12; Start 07/06/17 at 22:00 Bupropion HCl (Wellbutrin Xl) 150 mg BID PO Last administered on 07/06/17 22: 12; Start 07/06/17 at 22:00 Ferrous Sulfate (Feosol) 325 mg DAILY PO ; Start 07/07/17 at 09:00; Stop 07/07 at 09:32; Status DC Ondansetron HCl (Zofran Odt) 4 mg Q8HRS PRN PO NAUSEA/VOMITING; Start at 21:45 Sodium Bicarbonate (Sodium Bicarbonate) 650 mg TID PO Last administered on 22:12; Start 07/06/17 at 22:00 Trazodone HCl (Desyrel) 200 mg QHS PO Last administered on 07/06/17 22:12; Start 07/06/17 at 22:00 Diltiazem HCl (Cardizem) 120 mg Q8HRS PO Last administered on 07/06/17 22:14 ; Start 07/06/17 at 22:00; Stop 07/07/17 at 09:32; Status DC Gabapentin (Neurontin) 400 mg TID PO Last administered on 07/06/17 22:12; Start 07/06/17 at 21:45 Multivitamins (Thera M Plus) 1 tab DAILY PO ; Start 07/07/17 at 09:00 Oxycodone HCl (Roxicodone) 20 mg PRN Q12HRS PRN PO PAIN Last administered on 22:13; Start 07/06/17 at 21:45 Zolpidem Tartrate (Ambien) 5 mg QHS PO Last administered on 07/06/17 22:12; Start 07/06/17 at 22:00 Potassium Chloride (Klor-Con) 40 meq 1X ONCE PO Last administered on 06:31; Start 07/07/17 at 06:30; Stop 07/07/17 at 06:31; Status DC Potassium Chloride (Klor-Con) 40 meq 1X ONCE PO ; Start 07/07/17 at 12:00; Stop 07/07/17 at 12:01 Potassium Chloride/Dextrose/ Sod Cl 1,000 ml @ 100 mls/hr 1X ONCE IV ; Start 07/07/17 at 10:00; Stop 07/07/17 at 19:59 Active Scripts Active Zofran Odt (Ondansetron) 4 Mg Tab.rapdis 1 Tab SL Q8HRS PRN Levaquin (Levofloxacin) 500 Mg Tablet 1 Tab PO DAILY Reported Iron Supplement (Ferrous Sulfate) 325 Mg Tablet 1 Tab PO DAILY Sodium Bicarbonate 650 Mg Tablet 650 Mg PO TID Oxycodone Hcl 10 Mg Tablet 20 Mg PO PRN Q12HRS PRN Bupropion Xl (Bupropion Hcl) 150 Mg Tab.er.24h 1 Tab PO BID Multi-Day Vitamins (Multivitamin) 1 Each Tablet 1 Tab PO DAILY Ambien Cr (Zolpidem Tartrate) 12.5 Mg Tab.mphase 1 Tab PO QHS Trazodone Hcl 100 Mg Tablet 200 Mg PO DAILY Gabapentin 400 Mg Capsule 400 Mg PO TID Diltiazem Hcl Tablet (Diltiazem Hcl) 90 Mg Tablet 120 Mg PO TID Spironolactone 25 Mg Tablet 1 Tab PO DAILY Allopurinol 100 Mg Tablet 1 Tab PO BID Physical Exam Physical Exam VSS afebrile chest- clear cor- RRR abd- soft good bowel sounds- diffuse mildly tender without rebound extrem- no CCEneuro- awake, poor historian- no focal deficits Labs Labs Laboratory Tests Test 07/06/17 14:20 07/06/17 14:30 07/07/17 04:20 Urine Collection Type U cath Urine Color Yellow Urine Clarity Clear Urine pH 8.0 Urine Specific [place] 1.010 Urine Protein Negative mg/dL (NEG-TRACE) Urine Glucose (UA) Negative mg/dL (NEG) Urine Ketones (Stick) Trace mg/dL (NEG) Urine Blood Negative (NEG) Urine Nitrite Negative (NEG) Urine Bilirubin Negative (NEG) Urine Urobilinogen Dipstick 0.2 mg/dL (0.2 mg/dL) Urine Leukocyte Esterase Negative (NEG) Urine RBC 0 /HPF (0-2) Urine WBC 0 /HPF (0-4) Urine Squamous Epithelial Cells Occ /LPF Urine Bacteria 0 /HPF (0-FEW) White Blood Count 7.9 x10^3/uL (4.0-11.0) 5.2 x10^3/uL (4.0-11.0) Red Blood Count 3.56 x10^6/uL (3.50-5.40) 2.94 x10^6/uL (3.50-5.40) Hemoglobin 11.1 g/dL (12.0-15.5) 9.2 g/dL (12.0-15.5) Hematocrit 33.2 % (36.0-47.0) 28.3 % (36.0-47.0) Mean Corpuscular Volume 93 fL (79-100) 96 fL (79-100) Mean Corpuscular Hemoglobin 31 pg (25-35) 31 pg (25-35) Mean Corpuscular Hemoglobin Concent 34 g/dL (31-37) 33 g/dL (31-37) Red Cell Distribution Width 13.7 % (11.5-14.5) 14.1 % (11.5-14.5) Platelet Count 294 x10^3/uL (140-400) 226 x10^3/uL (140-400) Neutrophils (%) (Auto) 74 % (31-73) 54 % (31-73) Lymphocytes (%) (Auto) 17 % (24-48) 35 % (24-48) Monocytes (%) (Auto) 8 % (0-9) 9 % (0-9) Eosinophils (%) (Auto) 0 % (0-3) 1 % (0-3) Basophils (%) (Auto) 0 % (0-3) 0 % (0-3) Neutrophils # (Auto) 5.9 x10^3uL (1.8-7.7) 2.8 x10^3uL (1.8-7.7) Lymphocytes # (Auto) 1.3 x10^3/uL (1.0-4.8) 1.8 x10^3/uL (1.0-4.8) Monocytes # (Auto) 0.7 x10^3/uL (0.0-1.1) 0.5 x10^3/uL (0.0-1.1) Eosinophils # (Auto) 0.0 x10^3/uL (0.0-0.7) 0.1 x10^3/uL (0.0-0.7) Basophils # (Auto) 0.0 x10^3/uL (0.0-0.2) 0.0 x10^3/uL (0.0-0.2) Prothrombin Time 13.7 SEC (11.7-14.0) Prothromb Time International Ratio 1.1 (0.8-1.1) Sodium Level 135 mmol/L (136-145) 137 mmol/L (136-145) Potassium Level 2.4 mmol/L (3.5-5.1) 2.9 mmol/L (3.5-5.1) Chloride Level 92 mmol/L (98-107) 99 mmol/L (98-107) Carbon Dioxide Level 35 mmol/L (21-32) 32 mmol/L (21-32) Anion Gap 8 (6-14) 6 (6-14) Blood Urea Nitrogen 4 mg/dL (7-20) 3 mg/dL (7-20) Creatinine 1.1 mg/dL (0.6-1.0) 0.9 mg/dL (0.6-1.0) Estimated GFR (Cockcroft-Gault) 49.7 62.6 BUN/Creatinine Ratio 4 (6-20) 3 (6-20) Glucose Level 77 mg/dL (70-99) 66 mg/dL (70-99) Calcium Level 8.4 mg/dL (8.5-10.1) 7.8 mg/dL (8.5-10.1) Magnesium Level 1.6 mg/dL (1.8-2.4) Total Bilirubin 0.3 mg/dL (0.2-1.0) 0.3 mg/dL (0.2-1.0) Aspartate Amino Transf (AST/SGOT) 45 U/L (15-37) 34 U/L (15-37) Alanine Aminotransferase (ALT/SGPT) 36 U/L (14-59) 26 U/L (14-59) Alkaline Phosphatase 121 U/L (46-116) 89 U/L (46-116) Creatine Kinase 248 U/L (26-192) Creatine Kinase MB (Mass) 6.7 ng/mL (0.0-3.6) Creatine Kinase MB Relative Index 2.7 % (0-4) FI-Ryc-T-Type Natriuretic Peptide 34503 pg/mL (0-124) Total Protein 5.4 g/dL (6.4-8.2) 4.4 g/dL (6.4-8.2) Albumin 2.1 g/dL (3.4-5.0) 1.5 g/dL (3.4-5.0) Albumin/Globulin Ratio 0.6 (1.0-1.7) 0.5 (1.0-1.7) Lipase 88 U/L (73-393) Thyroid Stimulating Hormone (TSH) 1.516 uIU/mL (0.358-3.74) Imaging Imaging CT 07/03/2017- colitis Assessment Assessment Acute nausea, vomiting, diarrhea without bleeding- and colitis on CT- suggestive of infection, gastroenteritis Weakness with hyponatremia Plan- get stool studies agree with empiric flagyl, IVF symptomatic treatment unclear on prior GI work up- likely should have EGD and colonoscopy later (as outpt) Problems: Plan Plan Thank you for allowing us to participate in the care of your patient. We will continue to follow the patient with you and provide an appropriate recommendation as it becomes available. DEBRA MCCOLLUM MD Jul 07, 2017 12:04
[2017-07-07 14:41] VITALS: BP 88/52
[2017-07-07 19:00] VITALS: BP 107/36
[2017-07-07] MEDS: traZODone 100 MG TABLET. PO SCH (20:47)
[2017-07-07] MEDS: ZOLPIDEM 5 MG TABLET. PO SCH (20:48)
--- NOTE | 2017-07-07 22:39 | PDOC ---
Infectious Disease Note Subjective Subjective pt seen and dictated [id number] D/W Vital Sign Vital Signs Vital Signs Date Time Temp Pulse Resp B/P (MAP) Pulse Ox O2 Delivery O2 Flow Rate FiO2 07/07/17 19:00 98.8 71 18 107/36 (59) 96 Room Air 98.8 Labs Lab Laboratory Tests Test 07/07/17 04:20 White Blood Count 5.2 x10^3/uL (4.0-11.0) Red Blood Count 2.94 x10^6/uL (3.50-5.40) Hemoglobin 9.2 g/dL (12.0-15.5) Hematocrit 28.3 % (36.0-47.0) Mean Corpuscular Volume 96 fL (79-100) Mean Corpuscular Hemoglobin 31 pg (25-35) Mean Corpuscular Hemoglobin Concent 33 g/dL (31-37) Red Cell Distribution Width 14.1 % (11.5-14.5) Platelet Count 226 x10^3/uL (140-400) Neutrophils (%) (Auto) 54 % (31-73) Lymphocytes (%) (Auto) 35 % (24-48) Monocytes (%) (Auto) 9 % (0-9) Eosinophils (%) (Auto) 1 % (0-3) Basophils (%) (Auto) 0 % (0-3) Neutrophils # (Auto) 2.8 x10^3uL (1.8-7.7) Lymphocytes # (Auto) 1.8 x10^3/uL (1.0-4.8) Monocytes # (Auto) 0.5 x10^3/uL (0.0-1.1) Eosinophils # (Auto) 0.1 x10^3/uL (0.0-0.7) Basophils # (Auto) 0.0 x10^3/uL (0.0-0.2) Sodium Level 137 mmol/L (136-145) Potassium Level 2.9 mmol/L (3.5-5.1) Chloride Level 99 mmol/L (98-107) Carbon Dioxide Level 32 mmol/L (21-32) Anion Gap 6 (6-14) Blood Urea Nitrogen 3 mg/dL (7-20) Creatinine 0.9 mg/dL (0.6-1.0) Estimated GFR (Cockcroft-Gault) 62.6 BUN/Creatinine Ratio 3 (6-20) Glucose Level 66 mg/dL (70-99) Calcium Level 7.8 mg/dL (8.5-10.1) Total Bilirubin 0.3 mg/dL (0.2-1.0) Aspartate Amino Transf (AST/SGOT) 34 U/L (15-37) Alanine Aminotransferase (ALT/SGPT) 26 U/L (14-59) Alkaline Phosphatase 89 U/L (46-116) Total Protein 4.4 g/dL (6.4-8.2) Albumin 1.5 g/dL (3.4-5.0) Albumin/Globulin Ratio 0.5 (1.0-1.7) Objective Assessment see dictation Plan Plan of Care see dictation SILVIA MORALEZ MD Jul 07, 2017 22:39
[2017-07-07 23:00] VITALS: BP 105/65
[2017-07-08 03:00] VITALS: BP 117/74
[2017-07-08] MEDS: oxyCODONE IR 5 MG TABLET PO PRN ×2 (04:43→16:47)
[2017-07-08 07:00] VITALS: BP 113/45
--- NOTE | 2017-07-08 07:08 | PDOC ---
Provider Note Provider Note no temp, bp better w/ fluids- labs pending- no more diarrhea so c diff na- cont same, adv diet at her request TD DE MD Jul 08, 2017 07:08
--- NOTE | 2017-07-08 08:08 | RAD ---
Single view chest 07/07/2017 Clinical indication: PICC placement. Comparison: Single view chest 07/07/2017 Findings: Cardiac and mediastinal silhouettes are unremarkable. No pleural effusion, pneumothorax or focal consolidation. There is a right-sided PICC with distal tip at the low SVC level. Impression: Right-sided PICC at the lower SVC level.
[2017-07-08] MEDS: SODIUM BICARBONATE 650 MG TABLET. PO SCH ×3 (08:16→21:03)
[2017-07-08] MEDS: GABAPENTIN 400 MG CAPSULE. PO SCH ×3 (08:16→21:04)
[2017-07-08] MEDS: buPROPion XL 150 MG TAB.ER.24H. PO SCH ×2 (08:16→21:03)
[2017-07-08] MEDS: MULTIVITAMIN with MINERAL TABLET. PO SCH (08:16)
[2017-07-08] MEDS: ALLOPURINOL 100 MG TABLET. PO SCH ×2 (08:19→21:03)
[2017-07-08] MEDS: POTASSIUM CHLORIDE 40 MEQ in IV DEXTROSE 5% 1,000 ML IV SCH ×2 (08:43→22:57)
[2017-07-08 09:09] LABS: CALCIUM 7.3 mg/dL (8.5-10.1); CREATININE 0.9 mg/dL (0.6-1.0); GFR 62.6; POTASSIUM 4.9 mmol/L (3.5-5.1)
[2017-07-08 11:06] VITALS: BP 114/59
--- NOTE | 2017-07-08 11:09 | CONS ---
DATE OF CONSULTATION: 07/07/2017 REFERRING PHYSICIAN: Dr. Mejia. REASON FOR CONSULTATION: Diarrhea. HISTORY OF PRESENT ILLNESS: A 67-year-old female with a history of nausea, vomiting, diarrhea, who presented to ER on Sunday. Flu screen was negative. CT suggested colitis. The patient was not able to get any stool for study, so was discharged home on Levaquin, which she took. She subsequently returned with continuous nausea, vomiting, abdominal pain and diarrhea. She denied any antibiotics prior to the same. Denied any history of sick contact. Continues to have diffuse cramping abdominal pain. She was started on IV Flagyl. PAST MEDICAL HISTORY: Intermittent nausea and vomiting and diarrhea. A colonoscopy done 2 years ago was reported within normal limits. History of depression, questionable coronary artery disease, history of dyspepsia. REVIEW OF SYSTEMS: Weakness, nausea, vomiting, diarrhea, abdominal pain, generalized malaise, otherwise negative. ALLERGIES: PENICILLIN, ERYTHROMYCIN. CURRENT MEDICATION: IV Flagyl, ondansetron, dicyclomine, potassium chloride, morphine sulfate, allopurinol, bupropion, ferrous sulfate, trazodone, diltiazem, gabapentin, multivitamin, oxycodone, Ambien, potassium chloride. SOCIAL HISTORY: . Denies smoking, ETOH, or illicit drug use. PHYSICAL EXAMINATION: GENERAL: Alert, oriented x 3 female, lying in bed comfortably, in no acute distress. is at bedside. VITAL SIGNS: Temperature 99.3, 97.8 currently, pulse is 77, respiratory rate 16, blood pressure 102/62, oxygen saturation 98% on room air. HEENT: Normocephalic, atraumatic, anicteric. No conjunctival petechia. Tongue midline. No oral lesions. NECK: Supple. No JVD. LUNGS: Clear. CARDIOVASCULAR: S1, S2 present. No gallops or murmurs. ABDOMEN: Soft, bowel sounds present. Diffuse tenderness without rebound or guarding. EXTREMITIES: No pedal edema. No peripheral edema. No cyanosis. MUSCULOSKELETAL: No joint effusion noted. DERMATOLOGIC: No generalized rash. BISCUIT MAKER: Grossly nonfocal. PSYCHIATRIC: Appropriate mood and affect. LABORATORY DATA: WBC 5.2, hemoglobin 9.2, hematocrit 28.3, platelets 226. Sodium 137, potassium 2.9, chloride 99, bicarbonate 32, BUN 3, creatinine 0.9, glucose 66, calcium 7.8. Total bilirubin 0.3, AST 34, ALT 26, alkaline phosphatase 89. CK 248. Total protein 4.4, albumin 1.5. Lipase 88. TSH 1.5. UA negative. MICROBIOLOGY: Urine culture from 07/03/2017 shows E. coli, pansensitive. UA without pyuria. IMAGING: Chest x-ray on 07/06/2017 shows no acute cardiopulmonary process. CT abdomen on 07/03/2017, colitis. ASSESSMENT: 1. Acute nausea, vomiting, diarrhea without hematochezia or melena and colitis on CT suggestive of infection, viral gastroenteritis, not responding to Levaquin. 2. Hypokalemia. 3. Hyponatremia. 4. Generalized weakness secondary to acute nausea, vomiting, and diarrhea. PLAN: 1. Agree with empiric Flagyl, restart levaquin, IV fluids, symptomatic treatment, the patient remains afebrile with normal white count. 2. Send a stool for C. diff and stool culture. Thank you for allowing us to participate in the care of your patient. We will follow along with you. SILVIA MORALEZ MD DR: ABDIRASHID/faraz JOB#: [id number] / [id number] SANDEEP
--- NOTE | 2017-07-08 11:57 | PDOC ---
Infectious Disease Note Subjective Subjective Wanting to go home c/o back pain No further n/V/D ROS ROS GEN: Denies fevers, chills, sweats CV: Denies chest pain RESP: Denies shortness of air, cough Vital Sign Vital Signs Vital Signs Date Time Temp Pulse Resp B/P (MAP) Pulse Ox O2 Delivery O2 Flow Rate FiO2 07/08/17 11:06 97.9 81 18 114/59 (77) 100 Room Air 97.9 Physical Exam PHYSICAL EXAM GENERAL: Lying in bed, sideways HEENT: , OC/OP pink LUNGS: Clear HEART: S1S2, no gallop, no murmur ABD: Soft, NT EXT: No edema, no cyanosis CREDIT COLLECTIONS REP: Alert, oriented x 3, weak SKIN: No rash RUE-PICC. clean Labs Lab Laboratory Tests Test 07/08/17 08:38 Sodium Level 133 mmol/L (136-145) Potassium Level 4.9 mmol/L (3.5-5.1) Chloride Level 101 mmol/L (98-107) Carbon Dioxide Level 29 mmol/L (21-32) Anion Gap 3 (6-14) Blood Urea Nitrogen 4 mg/dL (7-20) Creatinine 0.9 mg/dL (0.6-1.0) Estimated GFR (Cockcroft-Gault) 62.6 Glucose Level 86 mg/dL (70-99) Calcium Level 7.3 mg/dL (8.5-10.1) Objective Assessment Acute nausea, vomiting, diarrhea without hematochezia or melena and colitis on CT suggestive of infection, viral gastroenteritis, not responding to Levaquin. Hypokalemia. Hyponatremia. Generalized weakness secondary to acute nausea, vomiting, and diarrhea. Plan Plan of Care Levaquin and Flagyl Stools cultures and C. diff have been ordered, but patient hasn't had a BM since admit. SHAY MICHELLE APRN Jul 08, 2017 11:57
--- NOTE | 2017-07-08 12:57 | RAD ---
Single view AP chest 07/07/2017 Clinical indication: PICC placement. Comparison: Single view chest 07/06/2017 Findings: There is a right-sided PICC with distal tip at the medial subclavian level. Cardiac and mediastinal silhouettes are unremarkable. No pleural effusion, pneumothorax or focal consolidation. Impression: Right-sided PICC at the subclavian level. Subsequent radiograph demonstrates repositioning.
[2017-07-08 15:00] VITALS: BP 116/60
[2017-07-08 19:00] VITALS: BP 131/78
[2017-07-08] MEDS ORDERED: NITROGLYCERIN SUBLINGUAL 0.4 MG BOTTLE OF 25. SL ONE ×2 (20:00→20:07)
--- NOTE | 2017-07-08 20:07 | EKG ---
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 RI6.01 Compared to ECG 12/13/2015 11:30:32 Left-axis deviation no longer present Electronically Signed On 07-20-2017 15:43:15 GOVERNMENT PROGRAM MANAGER by Dioni Downey
[2017-07-08] MEDS ORDERED: NITROGLYCERIN SUBLINGUAL 0.4 MG BOTTLE OF 25. SL PRN (20:15)
[2017-07-08] MEDS: traZODone 100 MG TABLET. PO SCH (21:03)
[2017-07-08] MEDS: ZOLPIDEM 5 MG TABLET. PO SCH (21:03)
[2017-07-08] MEDS: ONDANSETRON ODT 4 MG TAB.RAPDIS. PO PRN (21:09)
[2017-07-08 23:00] VITALS: BP 127/70
[2017-07-09 03:00] VITALS: BP 114/52
[2017-07-09] MEDS: oxyCODONE IR 5 MG TABLET PO PRN ×3 (06:28→23:19)
[2017-07-09 07:00] VITALS: BP 123/82
--- NOTE | 2017-07-09 07:56 | PDOC ---
Provider Note Provider Note afeb, bp good scant more diarrhea- K+ 4.9 now, no c diff specimen so will dc flagyl, iv fluid and see- she states she takes oxycodone tid prn at home, ordereed same TD DE MD Jul 09, 2017 07:56
[2017-07-09] MEDS: GABAPENTIN 400 MG CAPSULE. PO SCH ×3 (10:11→20:22)
[2017-07-09] MEDS: buPROPion XL 150 MG TAB.ER.24H. PO SCH ×2 (10:12→20:22)
[2017-07-09] MEDS: ALLOPURINOL 100 MG TABLET. PO SCH ×2 (10:12→20:22)
[2017-07-09] MEDS: SODIUM BICARBONATE 650 MG TABLET. PO SCH ×3 (10:12→20:22)
[2017-07-09] MEDS: MULTIVITAMIN with MINERAL TABLET. PO SCH (10:12)
--- NOTE | 2017-07-09 10:31 | PDOC ---
Subjective: Subjective: Can't really tell me if having diarrhea. I asked how many stools she is having daily, her says "that's not a question for her," - indicates long h/o irregular bowel habits, seems has soft but infrequent stools at home. Says some abd pain but better. Says n/v better but still "spits up" sometimes - can't really say when. wants answers to why "this keeps happening." Has had previous EGD and colonoscopy, says will never have again. S/p cholecystectomy. Objective: Objective: No stools charted, no stool specimens collected. Vital Signs: Vital Signs Date Time Temp Pulse Resp B/P (MAP) Pulse Ox O2 Delivery O2 Flow Rate FiO2 07/09/17 07:00 98.4 90 18 123/82 (96) 100 Room Air 98.4 PE: GEN: NAD LUNGS: CTAB HEART: RRR ABD: NABS+, LLQ tenderness SKIN: bruising NEURO/PSYCH: A & O 3 A/P: N/v, abd pain, diarrhea - mural thickening throughout colon on CT 07/03, atbx now stopped Anemia, hypokalemia (resolved), hyponatremia, hypoalbuminemia Weakness, falls -- Declines EGD and colonoscopy, not too interested in any further testing. Difficult history, seems long-term GI-issues. ?GES ?trial of acid-youth nutritional monitor DIANNE VACA Jul 09, 2017 10:31
[2017-07-09 10:56] VITALS: BP 118/80
[2017-07-09] MEDS: ONDANSETRON ODT 4 MG TAB.RAPDIS. PO PRN (12:18)
--- NOTE | 2017-07-09 13:59 | PDOC ---
Infectious Disease Note Subjective Subjective Wanting to go home c/o back pain No further n/V/D ROS ROS GEN: Denies fevers, chills, sweats HEENT: Denies blurred vision, sore throat CV: Denies chest pain RESP: Denies shortness of air, cough GI: Denies n/v/d NEURO: Denies confusion, dizziness MSK: Denies weakness, joint pain/swelling Vital Sign Vital Signs Vital Signs Date Time Temp Pulse Resp B/P (MAP) Pulse Ox O2 Delivery O2 Flow Rate FiO2 07/09/17 10:56 97.8 81 18 118/80 (93) 96 Room Air 97.8 Physical Exam PHYSICAL EXAM GENERAL: NAD, Alert HEENT: PERRL, OC/OP NECK: Supple, no JVD, no LN LUNGS: Clear HEART: S1S2, no gallop, no murmur ABD: Soft, NT, no organomegaly, no rebound EXT: No edema, no cyanosis [employer]ING [employer]ER: Alert, oriented x 3, no focal neurologic deficit SKIN: No rash IV: ok Labs Micro REVIEWED Objective Assessment Acute nausea, vomiting, diarrhea without hematochezia or melena and colitis on CT suggestive of infection, viral gastroenteritis, RESOLVED AFTER ONE DAY OF ADMISSION Hypokalemia. Hyponatremia. Generalized weakness secondary to acute nausea, vomiting, and diarrhea.RESOLVED BACK PAIN FROM RECENT FALL Plan Plan of Care OK TO DC LEVAQUIN AND FLAGYL OK TO DC HOME FROM ID [facility]ANDPOINT PT IS REFUSING GI W/U SILVIA MORALEZ MD Jul 09, 2017 13:59
[2017-07-09 15:00] VITALS: BP 120/78
[2017-07-09 19:00] VITALS: BP 133/75
[2017-07-09] MEDS: traZODone 100 MG TABLET. PO SCH (20:21)
[2017-07-09] MEDS: ZOLPIDEM 5 MG TABLET. PO SCH (20:22)
[2017-07-09 23:00] VITALS: BP 122/80
[2017-07-10 03:00] VITALS: BP 121/78
[2017-07-10 07:00] VITALS: BP 132/84
--- NOTE | 2017-07-10 08:59 | PDOC ---
SUBJECTIVE Subjective feels much better , off antibiotics, anxious to go home OBJECTIVE Vital Signs Vital Signs Date Time Temp Pulse Resp B/P (MAP) Pulse Ox O2 Delivery O2 Flow Rate FiO2 07/10/17 07:00 97.7 104 18 132/84 (100) 92 Room Air 97.7 07/10/17 03:00 98.9 95 18 121/78 (92) 95 Room Air 98.9 07/09/17 23:19 18 90 Room Air 07/09/17 23:00 98.9 98 17 122/80 (94) 98 Room Air 98.9 07/09/17 20:00 Room Air 07/09/17 19:00 98.9 94 16 133/75 (94) 90 Room Air 98.9 07/09/17 15:58 20 95 Room Air 07/09/17 15:00 97.9 80 18 120/78 (92) 95 Room Air 97.9 07/09/17 14:58 20 96 Room Air 07/09/17 10:56 97.8 81 18 118/80 (93) 96 Room Air 97.8 I & O Intake and Output 07/10/17 06:59 Intake Total 1400 ml Balance 1400 ml Intake Oral 1400 ml # Voids 8 # Bowel Movements 1 PHYSICAL EXAM Physical Exam lungs clear heart RRR abd soft no tenderness ext no edema , bruising noted ASSESSMENT/PLAN Assessment/Plan home today, no ABx, colitis clinically better, plan recheck CT in 1-2 weeks as out pt Problems: GERONIMO ARMIJO MD Jul 10, 2017 08:59
--- NOTE | 2017-07-10 09:03 | PDOC3 ---
*Discharge Summary* Date of Admission: Jul 06, 2017 Date of Discharge: Jul 10, 2017 Admitting Diagnosis Problems Medical Problems: (1) Colitis Status: Acute (2) Fall from standing Status: Acute (3) Hypokalemia Status: Acute Problems: Final Diagnosis 1-Acute nausea, vomiting, diarrhea without hematochezia or melena and colitis on CT seems , viral gastroenteritis, RESOLVED , pt refused EGD/Colonoscopy 2-Hypokalemia. 3-Hyponatremia. 4-Generalized weakness secondary to acute nausea, vomiting, and diarrhea.RESOLVED 5-BACK PAIN FROM RECENT FALL 6-multiple bruises due to fall Problems Medical Problems: (1) Colitis Status: Acute (2) Fall from standing Status: Acute (3) Hypokalemia Status: Acute CONSULTS Gastroenterology/ ID Procedures hip/pelvis xray, ankle xray, lumbar spine xray, CT scan head and cervical spine , several CXR Brief Hospital Course Ms. Figueroa is a 67 old [sex] who presented with [ ] Disposition/Orders: D/C to Home w/ HH CONDITION AT DISCHARGE: Improved Diet: Cardiac Home Meds Active Scripts Ondansetron (ZOFRAN ODT) 4 Mg Tab.rapdis, 1 TAB SL Q8HRS Y for NAUSEA/VOMITING, #15 TAB Prov:LISA MONTEJO MD 07/03/17 Levofloxacin (LEVAQUIN) 500 Mg Tablet, 1 TAB PO DAILY, #7 TAB Prov:LISA MONTEJO MD 07/03/17 Reported Medications Ferrous Sulfate (IRON SUPPLEMENT) 325 Mg Tablet, 1 TAB PO DAILY, #30 TAB 10 Refills 12/09/15 Sodium Bicarbonate (SODIUM BICARBONATE) 650 Mg Tablet, 650 MG PO TID 12/09/15 Oxycodone Hcl (OXYCODONE HCL) 10 Mg Tablet, 20 MG PO PRN Q12HRS Y for PAIN, TAB 0 Refills 12/09/15 Bupropion Hcl (BUPROPION XL) 150 Mg Tab.er.24h, 1 TAB PO BID, #30 TAB 2 Refills 12/09/15 Multivitamin (MULTI-DAY VITAMINS) 1 Each Tablet, 1 TAB PO DAILY, #30 TAB 12/09/15 Zolpidem Tartrate (AMBIEN CR) 12.5 Mg Tab.mphase, 1 TAB PO QHS, #30 TAB 1 Refill 12/09/15 Trazodone Hcl (TRAZODONE HCL) 100 Mg Tablet, 200 MG PO DAILY, TAB 12/09/15 Gabapentin (GABAPENTIN) 400 Mg Capsule, 400 MG PO TID, CAP 12/09/15 Diltiazem Hcl (DILTIAZEM HCL TABLET) 90 Mg Tablet, 120 MG PO TID for FOR HYPERTENSION, #30 TAB 0 Refills 12/09/15 Spironolactone (SPIRONOLACTONE) 25 Mg Tablet, 1 TAB PO DAILY, #90 TAB 1 Refill 12/09/15 Allopurinol (ALLOPURINOL) 100 Mg Tablet, 1 TAB PO BID, #90 TAB 3 Refills 12/09/15 Scheduled Allopurinol (Allopurinol), 1 TAB PO BID, (Reported) Bupropion Hcl (Bupropion Xl), 1 TAB PO BID, (Reported) Diltiazem Hcl (Diltiazem Hcl Tablet), 120 MG PO TID, (Reported) Ferrous Sulfate (Iron Supplement), 1 TAB PO DAILY, (Reported) Gabapentin (Gabapentin), 400 MG PO TID, (Reported) Levofloxacin (Levaquin), 1 TAB PO DAILY Multivitamin (Multi-Day Vitamins), 1 TAB PO DAILY, (Reported) Sodium Bicarbonate (Sodium Bicarbonate), 650 MG PO TID, (Reported) Spironolactone (Spironolactone), 1 TAB PO DAILY, (Reported) Trazodone Hcl (Trazodone Hcl), 200 MG PO DAILY, (Reported) Zolpidem Tartrate (Ambien Cr), 1 TAB PO QHS, (Reported) Scheduled PRN Ondansetron (Zofran Odt), 1 TAB SL Q8HRS PRN for NAUSEA/VOMITING Oxycodone Hcl (Oxycodone Hcl), 20 MG PO PRN Q12HRS PRN for PAIN, (Reported) FOLLOW UP APPOINTMENT: office [address] abd /pelvis to ensure clearance of colitis, pt need EGD / colono has refused inpt will discuss again on f/u Time Spent Total time spent with patient [] minutes for coordination of care, counseling, and education. GERONIMO ARMIJO MD Jul 10, 2017 09:03
[2017-07-10] MEDS: buPROPion XL 150 MG TAB.ER.24H. PO SCH (09:13)
[2017-07-10] MEDS: GABAPENTIN 400 MG CAPSULE. PO SCH (09:13)
[2017-07-10] MEDS: SODIUM BICARBONATE 650 MG TABLET. PO SCH (09:13)
[2017-07-10] MEDS: MULTIVITAMIN with MINERAL TABLET. PO SCH (09:13)
[2017-07-10] MEDS: ALLOPURINOL 100 MG TABLET. PO SCH (09:13)
--- NOTE | 2017-07-10 10:01 | PDOC ---
Subjective: Subjective: Going home whether she's discharged or not. Denies n/v, abd pain, and diarrhea. Had a stool this morning. Feels exhausted - upset that she is given sleeping med but then awakened early in the morning. Objective: Objective: 1 stool charted today. Vital Signs: Vital Signs Date Time Temp Pulse Resp B/P (MAP) Pulse Ox O2 Delivery O2 Flow Rate FiO2 07/10/17 07:00 97.7 104 18 132/84 (100) 92 Room Air 97.7 PE: GEN: NAD, up to chair ABD: difficult exam, keeps arms folder across abd - seems non-tender NEURO/PSYCH: A & O 3, frustrated A/P: N/v, abd pain, diarrhea - improved -pt does not desire further workup at this time -- DC per primary. DIANNE VACA Jul 10, 2017 10:01
--- NOTE | 2017-07-10 11:56 | PDOC ---
Infectious Disease Note Subjective Subjective Pt upset at not been dc home yet Wanting to go home No further n/V/D ROS ROS GEN: Denies fevers, chills, sweats HEENT: Denies blurred vision, sore throat CV: Denies chest pain RESP: Denies shortness of air, cough GI: Denies n/v/d NEURO: Denies confusion, dizziness MSK: Denies weakness, joint pain/swelling has back pain Vital Sign Vital Signs Vital Signs Date Time Temp Pulse Resp B/P (MAP) Pulse Ox O2 Delivery O2 Flow Rate FiO2 07/10/17 08:00 Room Air 07/10/17 07:00 97.7 104 18 132/84 (100) 92 97.7 Physical Exam PHYSICAL EXAM GENERAL: NAD, Alert HEENT: PERRL, OC/OP NECK: Supple, no JVD, no LN LUNGS: Clear HEART: S1S2, no gallop, no murmur ABD: Soft, NT, no organomegaly, no rebound EXT: No edema, no cyanosis [employer] COLONEL: Alert, oriented x 3, no focal neurologic deficit SKIN: No rash IV: ok Labs Micro REVIEWED Objective Assessment Acute nausea, vomiting, diarrhea without hematochezia or melena and colitis on CT suggestive of infection, viral gastroenteritis resolved Hypokalemia. Hyponatremia. Generalized weakness resolved Plan Plan of Care Supportive care OK to DC home SILVIA MORALEZ MD Jul 10, 2017 11:56
== END 2017-07-10 11:28 | disposition home health service (06) | DRG 872 ==
LOC: ER 12:53 → 5 SOUTH 15:52
PROVIDERS: ADMIT Internal Medicine; ATTEND Internal Medicine
PROC: 02HV33Z Insertion of Infusion Device into Superior Vena Cava, Percutaneous Approach (ICD-10-PCS; principal; 2017-07-06)
DX: A41.9 Sepsis, unspecified organism (principal); E44.0 Moderate protein-calorie malnutrition; E87.1 Hypo-osmolality and hyponatremia; A08.4 Viral intestinal infection, unspecified; W18.39XA Other fall on same level, initial encounter; E87.6 Hypokalemia; D64.9 Anemia, unspecified; I10 Essential (primary) hypertension; M53.3 Sacrococcygeal disorders, not elsewhere classified; Z96.659 Presence of unspecified artificial knee joint; F32.9 Major depressive disorder, single episode, unspecified; G89.29 Other chronic pain; Z88.0 Allergy status to penicillin; Z88.8 Allergy status to other drugs, medicaments and biological substances; Y93.89 Activity, other specified; Y92.89 Other specified places as the place of occurrence of the external cause; Z90.49 Acquired absence of other specified parts of digestive tract; Y99.8 Other external cause status
CPT/HCPCS: 36415; 36569; 70450; 71010; 72100; 72125; 73502; 73610; 74177; 80048; 80053; 81001; 82553; 83690; 83735; 83880; 84443; 85025; 85610; 87045; 87086; 87205; 87324; 87804; 93005; 96361; 96374; 96375; J2270; J2405; J3490; J7030; J7042; Q0162; 99285-25

== ENCOUNTER 2017-08-26 21:16 | Inpatient (IN) | payer BC ==
[2017-08-26 22:02] LABS: ADD MAN DIFF? NO
[2017-08-26 22:05] LABS: BASO # 0.1 x10^3/uL (0.0-0.2); BASO % 1 % (0-3); EOS # 0.1 x10^3/uL (0.0-0.7); EOS % 1 % (0-3); HEMATOCRIT 32.6 % (36.0-47.0); HEMOGLOBIN 11.3 g/dL (12.0-15.5); LYMPH # 2.7 x10^3/uL (1.0-4.8); LYMPH % 37 % (24-48); MEAN CORPUSCULAR HEMOGLOBIN 31 pg (25-35); MEAN CORPUSCULAR HGB CONC 35 g/dL (31-37); MEAN CORPUSCULAR VOLUME 89 fL (79-100); MONO # 0.8 x10^3/uL (0.0-1.1); MONO % 10 % (0-9); NEUT # 3.7 x10^3uL (1.8-7.7); NEUT % 51 % (31-73); PLATELET COUNT 290 x10^3/uL (140-400); RED BLOOD COUNT 3.66 x10^6/uL (3.50-5.40); RED CELL DISTRIBUTION WIDTH 13.6 % (11.5-14.5); WHITE BLOOD COUNT 7.2 x10^3/uL (4.0-11.0)
[2017-08-26 22:16] LABS: BILIRUBIN,URINE NEGATIVE (NEG); CLARITY,URINE CLEAR; COLOR,URINE YELLOW; GLUCOSE,URINE NEGATIVE (NEG); INR 1.1 (0.8-1.1); NITRITE,URINE NEGATIVE (NEG); PROTEIN,URINE NEGATIVE (NEG-TRACE); PROTHROMBIN TIME PATIENT 13.1 SEC (11.7-14.0); UROBILINOGEN,URINE 0.2 mg/dL (0.2 mg/dL)
[2017-08-26 22:16] LABS: ETHANOL < 10 mg/dL (0-10)
[2017-08-26 22:17] LABS: PARTIAL THROMBOPLASTIN TIME 28 SEC (24-38)
[2017-08-26] MEDS: ONDANSETRON PF 4 MG/2 ML VIAL. IV (22:19)
[2017-08-26] MEDS: IV NORMAL SALINE 1000ML BAG 1,000 ML IV (22:20)
[2017-08-26 22:21] LABS: ALBUMIN 2.1 g/dL (3.4-5.0); ALBUMIN/GLOBULIN RATIO 0.6 (1.0-1.7); ALK PHOS 136 U/L (46-116); ALT (SGPT) 27 U/L (14-59); ANION GAP 5 (6-14); AST (SGOT) 46 U/L (15-37); BLOOD UREA NITROGEN 8 mg/dL (7-20); BUN/CREATININE RATIO 6 (6-20); CALCIUM 8.6 mg/dL (8.5-10.1); CARBON DIOXIDE 39 mmol/L (21-32); CHLORIDE 83 mmol/L (98-107); CREATININE 1.3 mg/dL (0.6-1.0); GLUCOSE 100 mg/dL (70-99); LIPASE 78 U/L (73-393); MAGNESIUM 1.5 mg/dL (1.8-2.4); SODIUM 127 mmol/L (136-145); TOTAL BILIRUBIN 0.4 mg/dL (0.2-1.0); TOTAL PROTEIN 5.8 g/dL (6.4-8.2)
[2017-08-26 22:23] LABS: BARBITURATES NEG (NEG); BENZODIAZEPINES NEG (NEG); CANNABINOIDS NEG (NEG); COCAINE NEG (NEG); METHADONE NEG (NEG); OPIATES NEG (NEG); PHENCYCLIDINE NEG (NEG); POTASSIUM 2.5 mmol/L (3.5-5.1)
[2017-08-26 22:24] LABS: TROPONINI 0.065 ng/mL (0.000-0.055)
[2017-08-26 22:24] LABS: AMPHETAMINE/METHAMPHETAMINE NEG (NEG); ETHANOL, URINE NEG (NEG)
[2017-08-26 22:27] LABS: NT-PRO BNP 2720 pg/mL (0-124)
[2017-08-26 22:28] LABS: THYROID STIM HORMONE (TSH) 2.075 uIU/mL (0.358-3.74)
[2017-08-26 22:29] LABS: BACTERIA,URINE MANY /HPF (0-FEW); RBC,URINE OCC /HPF (0-2); SQUAMOUS EPITHELIAL CELL,UR OCC /LPF
[2017-08-26] MEDS ORDERED: ONDANSETRON PF 4 MG/2 ML VIAL. IV (22:30)
[2017-08-26] MEDS: ASPIRIN CHEWABLE 81 MG TABLET. PO ×2 (22:57→23:19)
[2017-08-26] MEDS: POTASSIUM CHLORIDE 20 MEQ TABLET.ER. PO (22:57)
[2017-08-26] MEDS: fentaNYL PF VIAL 100 MCG/2 ML VIAL IV (23:00)
[2017-08-26] MEDS: POTASSIUM CL 40MEQ IN 0.9%NACL 1,000 ML IV (23:25)
[2017-08-26] MEDS: MAGNESIUM SULFATE 2GM 50 ML IV (23:25)
[2017-08-26] MEDS: MAGNESIUM OXIDE 400 MG TABLET PO (23:29)
[2017-08-26] MEDS: cefTRIAXone IV Push 1 GM VIAL. IVP (23:29)
[2017-08-27] MEDS ORDERED: ASPIRIN 300 MG SUPP.RECT PR
[2017-08-27] MEDS: GABAPENTIN 400 MG CAPSULE. PO ×3 (01:33→20:11)
[2017-08-27] MEDS: ASPIRIN 325 MG TABLET PO (01:33)
[2017-08-27] MEDS: ZOLPIDEM 5 MG TABLET. PO ×2 (01:33→21:36)
[2017-08-27 05:21] LABS: ADD MAN DIFF? NO
[2017-08-27 05:48] LABS: BASO # 0.1 x10^3/uL (0.0-0.2); BASO % 1 % (0-3); EOS # 0.1 x10^3/uL (0.0-0.7); EOS % 1 % (0-3); HEMATOCRIT 29.8 % (36.0-47.0); HEMOGLOBIN 9.9 g/dL (12.0-15.5); LYMPH # 2.5 x10^3/uL (1.0-4.8); LYMPH % 34 % (24-48); MEAN CORPUSCULAR HEMOGLOBIN 30 pg (25-35); MEAN CORPUSCULAR HGB CONC 33 g/dL (31-37); MEAN CORPUSCULAR VOLUME 91 fL (79-100); MONO # 0.6 x10^3/uL (0.0-1.1); MONO % 8 % (0-9); NEUT # 4.2 x10^3uL (1.8-7.7); NEUT % 56 % (31-73); PLATELET COUNT 209 x10^3/uL (140-400); RED BLOOD COUNT 3.27 x10^6/uL (3.50-5.40); RED CELL DISTRIBUTION WIDTH 13.6 % (11.5-14.5); WHITE BLOOD COUNT 7.4 x10^3/uL (4.0-11.0)
[2017-08-27 06:02] LABS: ANION GAP 4 (6-14); CALCIUM 8.3 mg/dL (8.5-10.1); CARBON DIOXIDE 36 mmol/L (21-32); CHLORIDE 96 mmol/L (98-107); GFR 55.5; GLUCOSE 73 mg/dL (70-99); SODIUM 136 mmol/L (136-145)
[2017-08-27 06:07] LABS: BLOOD UREA NITROGEN 7 mg/dL (7-20); POTASSIUM 3.3 mmol/L (3.5-5.1)
[2017-08-27 06:11] LABS: TROPONINI 1.678 ng/mL (0.000-0.055)
[2017-08-27] MEDS ORDERED: ONDANSETRON ODT 4 MG TAB.RAPDIS. PO (09:00)
[2017-08-27] MEDS ORDERED: SODIUM BICARBONATE 650 MG TABLET. PO (09:30)
[2017-08-27] MEDS: POTASSIUM CHLORIDE 20 MEQ TABLET.ER. PO (09:30)
[2017-08-27] MEDS ORDERED: traZODone 100 MG TABLET. PO (09:30)
[2017-08-27] MEDS ORDERED: ENOXAPARIN 40 MG/0.4 ML SYRINGE. SQ (10:00)
[2017-08-27 10:21] LABS: MAGNESIUM 2.5 mg/dL (1.8-2.4)
[2017-08-27 10:21] LABS: CHOLESTEROL 85 mg/dL (0-200); HDLC 48 mg/dL (40-60); LDLC 19 mg/dL (0-100); NON-HDL CHOLESTEROL 37 mg/dL (0-129); TRIGLYCERIDES 89 mg/dL (0-150); VLDLC 18 mg/dL (0-40)
[2017-08-27 10:23] LABS: CHOLESTEROL/HDL RATIO 1.8
[2017-08-27] MEDS: IV NORMAL SALINE 1000ML BAG 1,000 ML IV (10:30)
[2017-08-27 11:19] LABS: TROPONINI 1.065 ng/mL (0.000-0.055)
[2017-08-27] MEDS: oxyCODONE IR 5 MG TABLET PO (12:11)
[2017-08-27] MEDS: LACTOBACILLUS RHAMNOSUS GG 1 CAPSULE. PO ×2 (12:11→20:11)
[2017-08-27] MEDS: ASPIRIN ENTERIC COATED 81 MG TABLET.DR. PO (12:11)
[2017-08-27] MEDS: FAMOTIDINE 20 MG/2 ML VIAL IVP (12:11)
[2017-08-27] MEDS: HEPARIN for IV BOLUS 10,000 UNIT/10 ML VIAL. IV (12:12)
[2017-08-27] MEDS: HEPARIN 25,000UTS/500ML PREMIX 500 ML IV (12:13)
[2017-08-27] MEDS ORDERED: POLYETHYLENE GLYCOL 3350 17 GM PACKET. PO (13:15)
[2017-08-27] MEDS ORDERED: PANTOPRAZOLE 40 MG TABLET.DR. PO (14:00)
[2017-08-27] MEDS ORDERED: LIDOCAINE WITH 8.4% SOD BICARB 3 ML DISP.SYRIN. ×2 (14:02→15:15)
[2017-08-27] MEDS: LIDOCAINE WITH 8.4% SOD BICARB 3 ML DISP.SYRIN. INJ (14:29)
[2017-08-27 15:24] LABS: MRSA BY PCR Negative (Negative)
[2017-08-27] MEDS: fentaNYL PF VIAL 100 MCG/2 ML VIAL IV ×2 (17:12→20:12)
[2017-08-27] MEDS: traZODone 100 MG TABLET. PO (20:11)
[2017-08-28] MEDS: cefTRIAXone IV Push 1 GM VIAL. IVP ×2 (00:01→23:00)
[2017-08-28] MEDS: IV NORMAL SALINE 1000ML BAG 1,000 ML IV ×2 (04:07→13:10)
[2017-08-28 04:30] LABS: HEMATOCRIT 27.1 % (36.0-47.0); HEMOGLOBIN 9.2 g/dL (12.0-15.5); MEAN CORPUSCULAR HEMOGLOBIN 31 pg (25-35); MEAN CORPUSCULAR HGB CONC 34 g/dL (31-37); MEAN CORPUSCULAR VOLUME 91 fL (79-100); PLATELET COUNT 183 x10^3/uL (140-400); RED BLOOD COUNT 2.97 x10^6/uL (3.50-5.40); RED CELL DISTRIBUTION WIDTH 13.6 % (11.5-14.5); WHITE BLOOD COUNT 4.8 x10^3/uL (4.0-11.0)
[2017-08-28 04:38] LABS: RETIC COUNT 0.7 % (0.5-2.5)
[2017-08-28 05:29] LABS: ANION GAP 4 (6-14); BLOOD UREA NITROGEN 6 mg/dL (7-20); CALCIUM 8.2 mg/dL (8.5-10.1); CARBON DIOXIDE 32 mmol/L (21-32); CHLORIDE 99 mmol/L (98-107); CREATININE 0.9 mg/dL (0.6-1.0); GFR 62.6; GLUCOSE 83 mg/dL (70-99); POTASSIUM 3.9 mmol/L (3.5-5.1); SODIUM 135 mmol/L (136-145)
[2017-08-28 05:44] LABS: % SAT IRON 106 % (15-34); IRON,SERUM 73 ug/dL (50-170)
[2017-08-28] MEDS: ASPIRIN ENTERIC COATED 81 MG TABLET.DR. PO (08:30)
[2017-08-28] MEDS: GABAPENTIN 400 MG CAPSULE. PO ×2 (09:00→19:08)
[2017-08-28] MEDS: LACTOBACILLUS RHAMNOSUS GG 1 CAPSULE. PO ×2 (09:00→19:08)
[2017-08-28 09:12] LABS: UNFRACTIONATED HEPARIN TESTING 0.43 IU/mL (0.30-0.70)
[2017-08-28] MEDS: ANTI-COAG MONITOR BY PHARMACY. MC (11:06)
[2017-08-28] MEDS ORDERED: LIDOCAINE 1% Multi-Dose 20 ML VIAL. (11:10)
[2017-08-28] MEDS ORDERED: IODIXANOL 320 MG/ML 100 ML VIAL. (11:10)
[2017-08-28] MEDS ORDERED: HEPARIN for IV BOLUS 10,000 UNIT/10 ML VIAL. (11:47)
[2017-08-28] MEDS ORDERED: NITROGLYCERIN 200 MCG/2 ML SYRINGE FOR CATH/VASC LAB. (11:47)
[2017-08-28] MEDS ORDERED: VERAPAMIL 5 MG/2 ML VIAL. (11:47)
[2017-08-28] MEDS ORDERED: fentaNYL PF VIAL 100 MCG/2 ML VIAL (13:03)
[2017-08-28] MEDS ORDERED: MIDAZOLAM HCL/PF 2 MG/2 ML VIAL. (13:04)
[2017-08-28] MEDS ORDERED: diphenhydrAMINE 50 MG/ML VIAL (13:16)
[2017-08-28] MEDS: diphenhydrAMINE 50 MG/ML VIAL IVP (13:18)
[2017-08-28] MEDS: LIDOCAINE 2% 20 ML VIAL. IJ (13:26)
[2017-08-28] MEDS: IODIXANOL 320 MG/ML 100 ML VIAL. IART (13:28)
[2017-08-28] MEDS ORDERED: CONTRAST GIVEN MC (13:30)
[2017-08-28] MEDS: MIDAZOLAM HCL/PF 2 MG/2 ML VIAL. IV (13:31)
[2017-08-28] MEDS: fentaNYL PF VIAL 100 MCG/2 ML VIAL IV ×2 (13:31→19:10)
[2017-08-28] MEDS ORDERED: MIDAZOLAM HCL/PF 2 MG/2 ML VIAL. IV (14:15)
[2017-08-28] MEDS: traZODone 100 MG TABLET. PO (19:08)
[2017-08-28] MEDS: oxyCODONE IR 5 MG TABLET PO (19:09)
[2017-08-29] MEDS: ASPIRIN ENTERIC COATED 81 MG TABLET.DR. PO (08:52)
[2017-08-29] MEDS: GABAPENTIN 400 MG CAPSULE. PO ×2 (08:52→20:20)
[2017-08-29] MEDS: LACTOBACILLUS RHAMNOSUS GG 1 CAPSULE. PO ×2 (08:52→20:20)
[2017-08-29] MEDS: oxyCODONE IR 5 MG TABLET PO ×2 (08:52→20:18)
[2017-08-29] MEDS: PANTOPRAZOLE 40 MG TABLET.DR. PO (12:08)
[2017-08-29] MEDS: fentaNYL PF VIAL 100 MCG/2 ML VIAL IV ×3 (12:34→18:32)
[2017-08-29] MEDS: cefTRIAXone IV Push 1 GM VIAL. IVP (20:19)
[2017-08-29] MEDS: traZODone 100 MG TABLET. PO (20:20)
[2017-08-30 04:15] LABS: HEMATOCRIT 25.5 % (36.0-47.0); HEMOGLOBIN 8.5 g/dL (12.0-15.5); MEAN CORPUSCULAR HEMOGLOBIN 31 pg (25-35); MEAN CORPUSCULAR HGB CONC 34 g/dL (31-37); MEAN CORPUSCULAR VOLUME 92 fL (79-100); PLATELET COUNT 171 x10^3/uL (140-400); RED BLOOD COUNT 2.77 x10^6/uL (3.50-5.40); RED CELL DISTRIBUTION WIDTH 13.9 % (11.5-14.5); WHITE BLOOD COUNT 5.5 x10^3/uL (4.0-11.0)
[2017-08-30 04:32] LABS: ANION GAP 2 (6-14); BLOOD UREA NITROGEN 6 mg/dL (7-20); CALCIUM 7.9 mg/dL (8.5-10.1); CARBON DIOXIDE 33 mmol/L (21-32); CHLORIDE 99 mmol/L (98-107); CREATININE 0.9 mg/dL (0.6-1.0); GFR 62.6; GLUCOSE 76 mg/dL (70-99); POTASSIUM 3.8 mmol/L (3.5-5.1); SODIUM 134 mmol/L (136-145)
[2017-08-30] MEDS ORDERED: CONTRAST GIVEN MC (09:45)
[2017-08-30] MEDS: PANTOPRAZOLE 40 MG TABLET.DR. PO (10:07)
[2017-08-30] MEDS: GABAPENTIN 400 MG CAPSULE. PO ×2 (10:07→20:06)
[2017-08-30] MEDS: oxyCODONE IR 5 MG TABLET PO (10:08)
[2017-08-30] MEDS: IOHEXOL 300 MG/ML 100ML VIAL. IV (10:49)
[2017-08-30] MEDS: IV RINGERS,LACTATED 1000ML 1,000 ML IV (12:26)
[2017-08-30] MEDS: POTASSIUM CHLORIDE 20 MEQ TABLET.ER. PO (13:15)
[2017-08-30] MEDS ORDERED: PROPOFOL 20 ML IV (13:25)
[2017-08-30] MEDS ORDERED: LIDOCAINE 2% PF Vial for OR 5 ML VIAL. (13:25)
[2017-08-30] MEDS: FUROSEMIDE 40 MG/4 ML VIAL. IVP (16:00)
[2017-08-30] MEDS: LACTOBACILLUS RHAMNOSUS GG 1 CAPSULE. PO ×2 (16:36→20:06)
[2017-08-30] MEDS: ASPIRIN ENTERIC COATED 81 MG TABLET.DR. PO (16:36)
[2017-08-30] MEDS: fentaNYL PF VIAL 100 MCG/2 ML VIAL IV (16:37)
[2017-08-30] MEDS: METOPROLOL SUCC 24HR ER 25 MG TAB.ER.24H. PO (20:07)
[2017-08-30] MEDS: LISINOPRIL 2.5 MG TABLET PO (20:07)
[2017-08-30] MEDS: traZODone 100 MG TABLET. PO (22:06)
[2017-08-30] MEDS: cefTRIAXone IV Push 1 GM VIAL. IVP (22:07)
[2017-08-30] MEDS: ZOLPIDEM 5 MG TABLET. PO (22:21)
[2017-08-31] MEDS: IV RINGERS,LACTATED 1000ML 1,000 ML IV ×2 (01:50→15:10)
[2017-08-31] MEDS: oxyCODONE IR 5 MG TABLET PO ×3 (03:17→20:08)
[2017-08-31 05:16] LABS: ANION GAP 4 (6-14); BLOOD UREA NITROGEN 6 mg/dL (7-20); CARBON DIOXIDE 30 mmol/L (21-32); CHLORIDE 100 mmol/L (98-107); CREATININE 0.9 mg/dL (0.6-1.0); GFR 62.6; GLUCOSE 76 mg/dL (70-99); POTASSIUM 3.8 mmol/L (3.5-5.1); SODIUM 134 mmol/L (136-145)
[2017-08-31 05:17] LABS: HEMATOCRIT 23.9 % (36.0-47.0); HEMOGLOBIN 8.1 g/dL (12.0-15.5); MEAN CORPUSCULAR HEMOGLOBIN 31 pg (25-35); MEAN CORPUSCULAR HGB CONC 34 g/dL (31-37); MEAN CORPUSCULAR VOLUME 92 fL (79-100); PLATELET COUNT 161 x10^3/uL (140-400); RED CELL DISTRIBUTION WIDTH 13.8 % (11.5-14.5); WHITE BLOOD COUNT 4.4 x10^3/uL (4.0-11.0)
[2017-08-31] MEDS: LACTOBACILLUS RHAMNOSUS GG 1 CAPSULE. PO ×2 (09:14→20:08)
[2017-08-31] MEDS: PANTOPRAZOLE 40 MG TABLET.DR. PO (09:14)
[2017-08-31] MEDS: LISINOPRIL 2.5 MG TABLET PO (09:14)
[2017-08-31] MEDS: ASPIRIN ENTERIC COATED 81 MG TABLET.DR. PO (09:14)
[2017-08-31] MEDS: GABAPENTIN 400 MG CAPSULE. PO ×2 (09:14→20:09)
[2017-08-31] MEDS: METOPROLOL SUCC 24HR ER 25 MG TAB.ER.24H. PO (09:14)
[2017-08-31] MEDS: fentaNYL PF VIAL 100 MCG/2 ML VIAL IV (16:29)
[2017-08-31] MEDS: ZOLPIDEM 5 MG TABLET. PO (20:09)
[2017-08-31] MEDS: traZODone 100 MG TABLET. PO (20:09)
[2017-08-31] MEDS: cefTRIAXone IV Push 1 GM VIAL. IVP (22:05)
[2017-09-01] MEDS: IV RINGERS,LACTATED 1000ML 1,000 ML IV (04:30)
[2017-09-01 06:29] LABS: HEMATOCRIT 28.5 % (36.0-47.0); HEMOGLOBIN 9.5 g/dL (12.0-15.5); MEAN CORPUSCULAR HEMOGLOBIN 31 pg (25-35); MEAN CORPUSCULAR HGB CONC 33 g/dL (31-37); MEAN CORPUSCULAR VOLUME 93 fL (79-100); PLATELET COUNT 205 x10^3/uL (140-400); RED BLOOD COUNT 3.05 x10^6/uL (3.50-5.40); RED CELL DISTRIBUTION WIDTH 13.7 % (11.5-14.5); WHITE BLOOD COUNT 5.4 x10^3/uL (4.0-11.0)
[2017-09-01] MEDS ORDERED: CONTRAST GIVEN MC ×2 (06:30→07:00)
[2017-09-01 06:33] LABS: ANION GAP 6 (6-14); BLOOD UREA NITROGEN 4 mg/dL (7-20); CALCIUM 7.8 mg/dL (8.5-10.1); CARBON DIOXIDE 28 mmol/L (21-32); CHLORIDE 97 mmol/L (98-107); GFR 55.5; GLUCOSE 105 mg/dL (70-99); POTASSIUM 3.3 mmol/L (3.5-5.1); SODIUM 131 mmol/L (136-145)
[2017-09-01] MEDS: IOHEXOL 240 MG/ML 50ML VIAL. PO (07:00)
[2017-09-01] MEDS: ONDANSETRON PF 4 MG/2 ML VIAL. IV (08:08)
[2017-09-01] MEDS ORDERED: diphenhydrAMINE 50 MG/ML VIAL IVP (08:30)
[2017-09-01] MEDS: METOPROLOL SUCC 24HR ER 25 MG TAB.ER.24H. PO (09:00)
[2017-09-01] MEDS: LISINOPRIL 2.5 MG TABLET PO (09:00)
[2017-09-01] MEDS: IOHEXOL 300 MG/ML 100ML VIAL. IV (09:53)
[2017-09-01] MEDS: LACTOBACILLUS RHAMNOSUS GG 1 CAPSULE. PO ×2 (11:23→22:20)
[2017-09-01] MEDS: GABAPENTIN 400 MG CAPSULE. PO ×2 (11:24→22:20)
[2017-09-01] MEDS: PANTOPRAZOLE 40 MG TABLET.DR. PO (11:24)
[2017-09-01] MEDS: ASPIRIN ENTERIC COATED 81 MG TABLET.DR. PO (11:24)
[2017-09-01] MEDS: oxyCODONE IR 5 MG TABLET PO ×2 (11:25→22:22)
[2017-09-01] MEDS: ALLOPURINOL 100 MG TABLET. PO ×2 (15:33→22:19)
[2017-09-01] MEDS: CEFPODOXIME PROXETIL 100 MG TABLET. PO (22:20)
[2017-09-01] MEDS: traZODone 100 MG TABLET. PO (22:21)
[2017-09-01] MEDS: ZOLPIDEM 5 MG TABLET. PO (22:21)
[2017-09-02] MEDS: METOPROLOL SUCC 24HR ER 25 MG TAB.ER.24H. PO (09:00)
[2017-09-02] MEDS: CEFPODOXIME PROXETIL 100 MG TABLET. PO ×2 (09:54→20:18)
[2017-09-02] MEDS: LACTOBACILLUS RHAMNOSUS GG 1 CAPSULE. PO ×2 (09:54→20:18)
[2017-09-02] MEDS: ASPIRIN ENTERIC COATED 81 MG TABLET.DR. PO (09:55)
[2017-09-02] MEDS: ALLOPURINOL 100 MG TABLET. PO ×2 (09:55→20:18)
[2017-09-02] MEDS: GABAPENTIN 400 MG CAPSULE. PO ×2 (09:55→20:18)
[2017-09-02] MEDS: PANTOPRAZOLE 40 MG TABLET.DR. PO (09:56)
[2017-09-02] MEDS: oxyCODONE IR 5 MG TABLET PO ×2 (09:57→20:19)
[2017-09-02] MEDS: POTASSIUM CHLORIDE 10 MEQ TABLET.ER. PO ×2 (12:37→17:16)
[2017-09-02] MEDS: FUROSEMIDE 20 MG TABLET PO (12:37)
[2017-09-02] MEDS: traZODone 100 MG TABLET. PO (20:18)
[2017-09-03] MEDS: ALLOPURINOL 100 MG TABLET. PO (08:42)
[2017-09-03] MEDS: LACTOBACILLUS RHAMNOSUS GG 1 CAPSULE. PO (08:42)
[2017-09-03] MEDS: GABAPENTIN 400 MG CAPSULE. PO (08:42)
[2017-09-03] MEDS: PANTOPRAZOLE 40 MG TABLET.DR. PO (08:42)
[2017-09-03] MEDS: POTASSIUM CHLORIDE 10 MEQ TABLET.ER. PO ×2 (08:43→13:00)
[2017-09-03] MEDS: METOPROLOL SUCC 24HR ER 25 MG TAB.ER.24H. PO (08:43)
[2017-09-03] MEDS: oxyCODONE IR 5 MG TABLET PO (08:43)
[2017-09-03] MEDS: ASPIRIN ENTERIC COATED 81 MG TABLET.DR. PO (08:44)
[2017-09-03] MEDS: CEFPODOXIME PROXETIL 100 MG TABLET. PO (08:44)
[2017-09-03 11:51] LABS: ANION GAP 7 (6-14); BLOOD UREA NITROGEN 5 mg/dL (7-20); CALCIUM 8.1 mg/dL (8.5-10.1); CARBON DIOXIDE 29 mmol/L (21-32); CHLORIDE 96 mmol/L (98-107); GFR 55.5; GLUCOSE 146 mg/dL (70-99); POTASSIUM 3.9 mmol/L (3.5-5.1); SODIUM 132 mmol/L (136-145)
== END 2017-09-03 13:50 | disposition home health service (06) | DRG 280 ==
LOC: ER 21:16 → 2 SOUTH 08-28 15:35 → 1 WEST ICU 22:03
PROC: 0D798ZZ Dilation of Duodenum, Via Natural or Artificial Opening Endoscopic (ICD-10-PCS; 2017-08-30 13:00)
PROC: 4A023N7 Measurement of Cardiac Sampling and Pressure, Left Heart, Percutaneous Approach (ICD-10-PCS; principal; 2017-08-30 13:33)
PROC: B2151ZZ Fluoroscopy of Left Heart using Low Osmolar Contrast (ICD-10-PCS; 2017-08-30 13:33)
PROC: B2111ZZ Fluoroscopy of Multiple Coronary Arteries using Low Osmolar Contrast (ICD-10-PCS; 2017-08-30 13:33)
PROC: 02H633Z Insertion of Infusion Device into Right Atrium, Percutaneous Approach (ICD-10-PCS; 2017-08-30 13:33)
PROC: B244ZZZ Ultrasonography of Right Heart (ICD-10-PCS; 2017-08-30 13:33)
DX: I21.4 Non-ST elevation (NSTEMI) myocardial infarction (principal); N17.0 Acute kidney failure with tubular necrosis; E46 Unspecified protein-calorie malnutrition; E87.3 Alkalosis; J90 Pleural effusion, not elsewhere classified; E83.42 Hypomagnesemia; I42.9 Cardiomyopathy, unspecified; K22.2 Esophageal obstruction; N17.9 Acute kidney failure, unspecified; N39.0 Urinary tract infection, site not specified; E86.0 Dehydration; B96.89 Other specified bacterial agents as the cause of diseases classified elsewhere; D64.9 Anemia, unspecified; E78.5 Hyperlipidemia, unspecified; E87.6 Hypokalemia; F41.9 Anxiety disorder, unspecified; G31.84 Mild cognitive impairment of uncertain or unknown etiology; G89.4 Chronic pain syndrome; I12.9 Hypertensive chronic kidney disease with stage 1 through stage 4 chronic kidney disease, or unspecified chronic kidney disease; I25.10 Atherosclerotic heart disease of native coronary artery without angina pectoris; K21.0 Gastro-esophageal reflux disease with esophagitis; K52.9 Noninfective gastroenteritis and colitis, unspecified; M79.7 Fibromyalgia; N18.3 Chronic kidney disease, stage 3 (moderate); R47.02 Dysphasia; F32.9 Major depressive disorder, single episode, unspecified; G56.00 Carpal tunnel syndrome, unspecified upper limb; M10.9 Gout, unspecified; M25.511 Pain in right shoulder; M19.90 Unspecified osteoarthritis, unspecified site; M54.5 Low back pain; Z96.651 Presence of right artificial knee joint; Z79.891 Long term (current) use of opiate analgesic; Z80.3 Family history of malignant neoplasm of breast; Z82.49 Family history of ischemic heart disease and other diseases of the circulatory system; Z82.5 Family history of asthma and other chronic lower respiratory diseases; Z83.3 Family history of diabetes mellitus; Z85.43 Personal history of malignant neoplasm of ovary; Z87.11 Personal history of peptic ulcer disease; Z90.710 Acquired absence of both cervix and uterus; Z90.49 Acquired absence of other specified parts of digestive tract
CPT/HCPCS: 36415; 36556; 51701; 70450; 71045; 71275; 74022; 74177; 76937; 80048; 80053; 80061; 80307; 81001; 83540; 83550; 83690; 83735; 83880; 84443; 84484; 85025; 85027; 85045; 85520; 85610; 85730; 87086; 87186; 87641; 92610-GN; 93005; 93306; 93458; 96361; 96365; 96368; 96375; 97116-GP; 97162-GP; 97166-GO; 97530-GO; 97530-GP; 97535-GO; 99152; 99153; 99291; 99291-25; C1769; C1892; G0269; G0480; J0696; J1200; J1644; J2060; J2250; J2405; J2704; J3010; J3480; J7030; J7060; J7120; Q9966; Q9967; S0028

== ENCOUNTER 2017-11-19 16:54 | Emergency (ER) | payer BC ==
[2017-11-19] MEDS: ONDANSETRON ODT 4 MG TAB.RAPDIS. PO (17:39)
[2017-11-19] MEDS: ACETAMINOPHEN 325 MG TABLET. PO (17:40)
[2017-11-19] MEDS: DIPHTH,PERTUSS(ACELL),TET TOX 0.5 ML DISP.SYRIN. VAX IM (20:30)
== END 2017-11-19 21:25 | disposition home or self-care (01) ==
LOC: ER 16:54
DX: S01.111A Laceration without foreign body of right eyelid and periocular area, initial encounter (principal); G89.29 Other chronic pain; K21.9 Gastro-esophageal reflux disease without esophagitis; I12.9 Hypertensive chronic kidney disease with stage 1 through stage 4 chronic kidney disease, or unspecified chronic kidney disease; N18.9 Chronic kidney disease, unspecified; Z88.0 Allergy status to penicillin; W18.09XA Striking against other object with subsequent fall, initial encounter; Z88.1 Allergy status to other antibiotic agents; Y93.89 Activity, other specified; Y99.8 Other external cause status; Y92.89 Other specified places as the place of occurrence of the external cause
CPT/HCPCS: 70450; 72125; 90471; 90715; 99284-25; Q0162

== ENCOUNTER 2017-11-22 11:13 | Inpatient (IN) | payer BC ==
[2017-11-22 12:33] LABS: BASE EXCESS ABG 3 mmol/L (-3-3); HCO3 ABG 27 mmol/L (21-28); PCO2 ABG 38 mmHg (35-46); PH ABG 7.47 (7.35-7.45); PO2 ABG 82 mmHg (65-108); SAT O2 ABG 95 % (92-99)
[2017-11-22 12:54] LABS: ADD MAN DIFF? NO
[2017-11-22 13:01] LABS: BASO % 1 % (0-3); EOS % 0 % (0-3); HEMATOCRIT 29.5 % (36.0-47.0); LYMPH # 1.5 x10^3/uL (1.0-4.8); LYMPH % 33 % (24-48); MEAN CORPUSCULAR HEMOGLOBIN 30 pg (25-35); MEAN CORPUSCULAR HGB CONC 34 g/dL (31-37); MEAN CORPUSCULAR VOLUME 87 fL (79-100); MONO # 0.3 x10^3/uL (0.0-1.1); MONO % 7 % (0-9); NEUT # 2.7 x10^3uL (1.8-7.7); NEUT % 59 % (31-73); PLATELET COUNT 440 x10^3/uL (140-400); RED BLOOD COUNT 3.39 x10^6/uL (3.50-5.40); RED CELL DISTRIBUTION WIDTH 18.6 % (11.5-14.5); WHITE BLOOD COUNT 4.6 x10^3/uL (4.0-11.0)
[2017-11-22 13:11] LABS: ANION GAP 13 (6-14); BLOOD UREA NITROGEN 5 mg/dL (7-20); BUN/CREATININE RATIO 5 (6-20); CALCIUM 9.1 mg/dL (8.5-10.1); CARBON DIOXIDE 25 mmol/L (21-32); CHLORIDE 97 mmol/L (98-107); CREATININE 1.1 mg/dL (0.6-1.0); GFR 49.7; GLUCOSE 106 mg/dL (70-99); POTASSIUM 3.4 mmol/L (3.5-5.1); SODIUM 135 mmol/L (136-145)
[2017-11-22 13:16] LABS: AMMONIA 25 mcmol/L (11-34)
[2017-11-22 13:17] LABS: ALK PHOS 168 U/L (46-116); ALT (SGPT) 27 U/L (14-59); AST (SGOT) 49 U/L (15-37); CREATINE KINASE 47 U/L (26-192); MAGNESIUM 1.6 mg/dL (1.8-2.4); TOTAL BILIRUBIN 0.4 mg/dL (0.2-1.0); TOTAL PROTEIN 6.1 g/dL (6.4-8.2)
[2017-11-22 13:18] LABS: INR 1.1 (0.8-1.1); PARTIAL THROMBOPLASTIN TIME 25 SEC (24-38); PROTHROMBIN TIME PATIENT 13.3 SEC (11.7-14.0)
[2017-11-22 13:18] LABS: TROPONINI < 0.017 ng/mL (0.000-0.055)
[2017-11-22 13:23] LABS: ALBUMIN 2.3 g/dL (3.4-5.0); ALBUMIN/GLOBULIN RATIO 0.6 (1.0-1.7)
[2017-11-22 13:26] LABS: CKMB MASS 2.1 ng/mL (0.0-3.6); CREATINE KINASE 48 U/L (26-192)
[2017-11-22 13:26] LABS: NT-PRO BNP 1898 pg/mL (0-124)
[2017-11-22] MEDS: IV NORMAL SALINE 1000ML BAG 1,000 ML IV (13:39)
[2017-11-22 13:58] LABS: BILIRUBIN,URINE NEGATIVE (NEG); CLARITY,URINE CLEAR; COLOR,URINE YELLOW; GLUCOSE,URINE NEGATIVE (NEG); NITRITE,URINE NEGATIVE (NEG); PROTEIN,URINE NEGATIVE (NEG-TRACE); UROBILINOGEN,URINE 0.2 mg/dL (0.2 mg/dL)
[2017-11-22 14:02] LABS: BACTERIA,URINE 0 /HPF (0-FEW); HYALINE CASTS, URINE OCCASIONAL /HPF; RBC,URINE 0 /HPF (0-2); SQUAMOUS EPITHELIAL CELL,UR FEW /LPF; WBC,URINE 0 /HPF (0-4)
[2017-11-22 14:10] LABS: BARBITURATES NEG (NEG); BENZODIAZEPINES NEG (NEG); CANNABINOIDS NEG (NEG); COCAINE NEG (NEG); METHADONE NEG (NEG); OPIATES POS (NEG); PHENCYCLIDINE NEG (NEG)
[2017-11-22 14:13] LABS: AMPHETAMINE/METHAMPHETAMINE NEG (NEG); ETHANOL, URINE NEG (NEG)
[2017-11-22 14:36] LABS: LACTIC ACID 1.3 mmol/L (0.4-2.0)
[2017-11-22] MEDS ORDERED: ONDANSETRON PF 4 MG/2 ML VIAL. IV (14:45)
[2017-11-22] MEDS ORDERED: ONDANSETRON ODT 4 MG TAB.RAPDIS. PO ×2 (21:15)
[2017-11-22] MEDS: ACETAMINOPHEN 325 MG TABLET. PO (23:30)
[2017-11-22] MEDS: MAGNESIUM OXIDE 400 MG TABLET PO (23:30)
[2017-11-22] MEDS: POTASSIUM CHLORIDE 20 MEQ TABLET.ER. PO (23:31)
[2017-11-22] MEDS: traZODone 100 MG TABLET. PO (23:31)
[2017-11-23] MEDS ORDERED: PANTOPRAZOLE 40 MG PO (07:30)
[2017-11-23] MEDS: METOPROLOL SUCC 24HR ER 25 MG TAB.ER.24H. PO (07:45)
[2017-11-23] MEDS: amLODIPine BESYLATE 5 MG TABLET PO (07:45)
[2017-11-23] MEDS: ASPIRIN ENTERIC COATED 81 MG TABLET.DR. PO (07:46)
[2017-11-23] MEDS: ALLOPURINOL 100 MG TABLET. PO ×2 (07:46→21:13)
[2017-11-23] MEDS: CHOLECALCIFEROL (VITAMIN D3) 1,000 UNIT TABLET PO (07:46)
[2017-11-23] MEDS: PANTOPRAZOLE 40 MG TABLET.DR. PO (07:46)
[2017-11-23] MEDS: MAGNESIUM OXIDE 400 MG TABLET PO ×3 (07:46→21:13)
[2017-11-23 09:20] LABS: ADD MAN DIFF? NO
[2017-11-23 09:27] LABS: BASO % 1 % (0-3); EOS % 0 % (0-3); HEMATOCRIT 23.5 % (36.0-47.0); HEMOGLOBIN 8.1 g/dL (12.0-15.5); LYMPH # 1.2 x10^3/uL (1.0-4.8); LYMPH % 23 % (24-48); MEAN CORPUSCULAR HEMOGLOBIN 30 pg (25-35); MEAN CORPUSCULAR HGB CONC 35 g/dL (31-37); MEAN CORPUSCULAR VOLUME 88 fL (79-100); MONO # 0.3 x10^3/uL (0.0-1.1); MONO % 5 % (0-9); NEUT # 3.8 x10^3uL (1.8-7.7); NEUT % 71 % (31-73); PLATELET COUNT 289 x10^3/uL (140-400); RED BLOOD COUNT 2.68 x10^6/uL (3.50-5.40); WHITE BLOOD COUNT 5.3 x10^3/uL (4.0-11.0)
[2017-11-23 09:43] LABS: ALBUMIN 1.6 g/dL (3.4-5.0); ALBUMIN/GLOBULIN RATIO 0.5 (1.0-1.7); ALK PHOS 133 U/L (46-116); ALT (SGPT) 21 U/L (14-59); ANION GAP 7 (6-14); AST (SGOT) 35 U/L (15-37); BLOOD UREA NITROGEN 4 mg/dL (7-20); BUN/CREATININE RATIO 4 (6-20); CALCIUM 8.1 mg/dL (8.5-10.1); CARBON DIOXIDE 27 mmol/L (21-32); CHLORIDE 99 mmol/L (98-107); CREATININE 0.9 mg/dL (0.6-1.0); GFR 62.6; GLUCOSE 101 mg/dL (70-99); SODIUM 133 mmol/L (136-145); TOTAL BILIRUBIN 0.5 mg/dL (0.2-1.0); TOTAL PROTEIN 4.8 g/dL (6.4-8.2)
[2017-11-23] MEDS: PRENATAL MULTIVITAMIN TABLET. PO (10:19)
[2017-11-23] MEDS: LACTOBACILLUS RHAMNOSUS GG 1 CAPSULE. PO ×2 (10:19→21:13)
[2017-11-23] MEDS: VANCOMYCIN 125 MG/2.5 ML ORAL SOLUTION. PO ×3 (12:15→21:13)
[2017-11-23] MEDS: POTASSIUM CHLORIDE 20 MEQ TABLET.ER. PO (12:15)
[2017-11-23] MEDS: MAGNESIUM SULFATE 2GM 50 ML IV ×2 (12:20→12:30)
[2017-11-23] MEDS: GABAPENTIN 100 MG CAPSULE. PO ×2 (13:43→21:13)
[2017-11-23] MEDS: ALPRAZolam 0.25 MG TABLET PO ×2 (15:35→21:12)
[2017-11-23] MEDS: HYDROcodone/APAP 5/325MG 1 TAB TABLET PO (15:35)
[2017-11-23 20:10] LABS: MRSA BY PCR Negative (Negative)
[2017-11-23] MEDS ORDERED: ALLOPURINOL 100 MG TABLET. PO (21:00)
[2017-11-23] MEDS ORDERED: traZODone 100 MG TABLET. PO (21:00)
[2017-11-23] MEDS: traZODone 100 MG TABLET. PO (21:12)
[2017-11-24] MEDS ORDERED: METOPROLOL TART IMMED RELEASE 25 MG TABLET. PO (09:00)
[2017-11-24] MEDS: VANCOMYCIN 125 MG/2.5 ML ORAL SOLUTION. PO ×4 (09:45→21:13)
[2017-11-24] MEDS: CHOLECALCIFEROL (VITAMIN D3) 1,000 UNIT TABLET PO (09:45)
[2017-11-24] MEDS: PRENATAL MULTIVITAMIN TABLET. PO (09:45)
[2017-11-24] MEDS: PANTOPRAZOLE 40 MG TABLET.DR. PO (09:45)
[2017-11-24] MEDS: METOPROLOL SUCC 24HR ER 25 MG TAB.ER.24H. PO (09:46)
[2017-11-24] MEDS: LACTOBACILLUS RHAMNOSUS GG 1 CAPSULE. PO ×2 (09:46→21:09)
[2017-11-24] MEDS: GABAPENTIN 100 MG CAPSULE. PO ×3 (09:46→21:09)
[2017-11-24] MEDS: MAGNESIUM OXIDE 400 MG TABLET PO ×3 (09:46→21:09)
[2017-11-24] MEDS: ALLOPURINOL 100 MG TABLET. PO ×2 (09:47→21:10)
[2017-11-24] MEDS: amLODIPine BESYLATE 5 MG TABLET PO (09:47)
[2017-11-24] MEDS: ASPIRIN ENTERIC COATED 81 MG TABLET.DR. PO (09:47)
[2017-11-24] MEDS ORDERED: ACETAMINOPHEN 500 MG TABLET PO (10:00)
[2017-11-24] MEDS: IOHEXOL 240 MG/ML 50ML VIAL. PO (10:45)
[2017-11-24] MEDS ORDERED: CONTRAST GIVEN MC (11:00)
[2017-11-24 14:09] LABS: POTASSIUM 4.2 mmol/L (3.5-5.1)
[2017-11-24 14:09] LABS: MAGNESIUM 1.4 mg/dL (1.8-2.4)
[2017-11-24] MEDS: MAGNESIUM SULFATE 4GM 100 ML IV (15:00)
[2017-11-24] MEDS: HYDROcodone/APAP 5/325MG 1 TAB TABLET PO (21:09)
[2017-11-24] MEDS: ALPRAZolam 0.25 MG TABLET PO (21:09)
[2017-11-25 05:07] LABS: ADD MAN DIFF? NO
[2017-11-25 05:16] LABS: BASO % 1 % (0-3); EOS % 1 % (0-3); HEMOGLOBIN 7.6 g/dL (12.0-15.5); LYMPH # 1.8 x10^3/uL (1.0-4.8); LYMPH % 53 % (24-48); MEAN CORPUSCULAR HEMOGLOBIN 30 pg (25-35); MEAN CORPUSCULAR HGB CONC 34 g/dL (31-37); MEAN CORPUSCULAR VOLUME 88 fL (79-100); MONO # 0.2 x10^3/uL (0.0-1.1); MONO % 7 % (0-9); NEUT # 1.3 x10^3uL (1.8-7.7); NEUT % 38 % (31-73); PLATELET COUNT 212 x10^3/uL (140-400); RED BLOOD COUNT 2.51 x10^6/uL (3.50-5.40); RED CELL DISTRIBUTION WIDTH 17.8 % (11.5-14.5); WHITE BLOOD COUNT 3.4 x10^3/uL (4.0-11.0)
[2017-11-25] MEDS: VANCOMYCIN 125 MG/2.5 ML ORAL SOLUTION. PO ×4 (09:08→20:58)
[2017-11-25] MEDS: LACTOBACILLUS RHAMNOSUS GG 1 CAPSULE. PO ×2 (09:09→20:58)
[2017-11-25] MEDS: METOPROLOL SUCC 24HR ER 25 MG TAB.ER.24H. PO (09:10)
[2017-11-25] MEDS: MAGNESIUM OXIDE 400 MG TABLET PO ×3 (09:10→20:58)
[2017-11-25] MEDS: PRENATAL MULTIVITAMIN TABLET. PO (09:10)
[2017-11-25] MEDS: amLODIPine BESYLATE 5 MG TABLET PO (09:10)
[2017-11-25] MEDS: ASPIRIN ENTERIC COATED 81 MG TABLET.DR. PO (09:10)
[2017-11-25] MEDS: GABAPENTIN 100 MG CAPSULE. PO ×3 (09:11→20:58)
[2017-11-25] MEDS: CHOLECALCIFEROL (VITAMIN D3) 1,000 UNIT TABLET PO (09:11)
[2017-11-25] MEDS: PANTOPRAZOLE 40 MG TABLET.DR. PO (09:11)
[2017-11-25] MEDS: ALLOPURINOL 100 MG TABLET. PO ×2 (09:11→20:58)
[2017-11-25] MEDS: HYDROcodone/APAP 5/325MG 1 TAB TABLET PO ×3 (11:47→23:29)
[2017-11-25] MEDS: ALPRAZolam 0.25 MG TABLET PO ×2 (11:50→18:46)
[2017-11-25] MEDS: PEG 3350/NA SULF,BICARB,CL/KCL 4,000 ML SOLUTION. PO (16:31)
[2017-11-25] MEDS: traZODone 100 MG TABLET. PO (23:29)
[2017-11-26] MEDS ORDERED: ZOLPIDEM 5 MG TABLET. PO
[2017-11-26 05:13] LABS: BASO % 1 % (0-3); EOS # 0.1 x10^3/uL (0.0-0.7); EOS % 2 % (0-3); HEMATOCRIT 27.5 % (36.0-47.0); HEMOGLOBIN 9.2 g/dL (12.0-15.5); LYMPH # 2.1 x10^3/uL (1.0-4.8); LYMPH % 65 % (24-48); MEAN CORPUSCULAR HEMOGLOBIN 29 pg (25-35); MEAN CORPUSCULAR HGB CONC 34 g/dL (31-37); MEAN CORPUSCULAR VOLUME 88 fL (79-100); MONO # 0.2 x10^3/uL (0.0-1.1); MONO % 6 % (0-9); NEUT # 0.9 x10^3uL (1.8-7.7); NEUT % 27 % (31-73); PLATELET COUNT 229 x10^3/uL (140-400); RED BLOOD COUNT 3.14 x10^6/uL (3.50-5.40); RED CELL DISTRIBUTION WIDTH 17.7 % (11.5-14.5); WHITE BLOOD COUNT 3.3 x10^3/uL (4.0-11.0)
[2017-11-26 05:33] LABS: ADD MAN DIFF? YES
[2017-11-26] MEDS ORDERED: LIDOCAINE 1% PF 2 ML VIAL. ID (07:00)
[2017-11-26] MEDS ORDERED: fentaNYL PF VIAL 100 MCG/2 ML VIAL IV ×2 (07:00)
[2017-11-26] MEDS ORDERED: ONDANSETRON PF 4 MG/2 ML VIAL. IV (07:00)
[2017-11-26] MEDS ORDERED: PROCHLORPERAZINE 10 MG/2 ML VIAL. IV (07:00)
[2017-11-26] MEDS ORDERED: MORPHINE SULFATE 4 MG/ML DISP.SYRIN. IV (07:00)
[2017-11-26] MEDS: MAGNESIUM CITRATE 296 ML SOLUTION. PO (08:36)
[2017-11-26] MEDS: GABAPENTIN 100 MG CAPSULE. PO ×3 (09:00→20:24)
[2017-11-26] MEDS: VANCOMYCIN 125 MG/2.5 ML ORAL SOLUTION. PO ×4 (09:00→20:24)
[2017-11-26] MEDS: BISACODYL 5 MG TABLET.DR. PO (09:37)
[2017-11-26 09:59] LABS: % LYMPHS 53 % (24-48); % MONOS 5 % (0-10)
[2017-11-26 10:00] LABS: % SEGS 42 % (35-66); ANISOCYTOSIS SLIGHT
[2017-11-26 10:02] LABS: HYPOCHROMIA SLIGHT
[2017-11-26 11:33] LABS: PLT ESTIMATE ADEQUATE (ADEQUATE)
[2017-11-26] MEDS ORDERED: LIDOCAINE 2% PF Vial for OR 5 ML VIAL. (13:37)
[2017-11-26] MEDS: IV RINGERS,LACTATED 1000ML 1,000 ML IV (15:09)
[2017-11-26] MEDS: HYDROcodone/APAP 5/325MG 1 TAB TABLET PO ×2 (15:24→21:08)
[2017-11-26] MEDS: MAGNESIUM OXIDE 400 MG TABLET PO ×2 (15:24→20:24)
[2017-11-26] MEDS: ALLOPURINOL 100 MG TABLET. PO ×2 (15:24→20:24)
[2017-11-26] MEDS: PRENATAL MULTIVITAMIN TABLET. PO (15:25)
[2017-11-26] MEDS: CHOLECALCIFEROL (VITAMIN D3) 1,000 UNIT TABLET PO (15:25)
[2017-11-26] MEDS: ALPRAZolam 0.25 MG TABLET PO (15:25)
[2017-11-26] MEDS: amLODIPine BESYLATE 5 MG TABLET PO (15:25)
[2017-11-26] MEDS: PANTOPRAZOLE 40 MG TABLET.DR. PO (15:26)
[2017-11-26] MEDS: LACTOBACILLUS RHAMNOSUS GG 1 CAPSULE. PO ×2 (15:26→20:23)
[2017-11-26] MEDS: ASPIRIN ENTERIC COATED 81 MG TABLET.DR. PO (15:26)
[2017-11-26] MEDS: METOPROLOL SUCC 24HR ER 25 MG TAB.ER.24H. PO (15:26)
[2017-11-26] MEDS: traZODone 100 MG TABLET. PO (21:08)
[2017-11-27] MEDS: HYDROcodone/APAP 5/325MG 1 TAB TABLET PO ×3 (03:55→21:04)
[2017-11-27 06:39] LABS: ADD MAN DIFF? NO
[2017-11-27 07:04] LABS: BASO % 1 % (0-3); EOS % 1 % (0-3); HEMATOCRIT 23.1 % (36.0-47.0); HEMOGLOBIN 7.9 g/dL (12.0-15.5); LYMPH # 1.8 x10^3/uL (1.0-4.8); LYMPH % 50 % (24-48); MEAN CORPUSCULAR HEMOGLOBIN 30 pg (25-35); MEAN CORPUSCULAR HGB CONC 34 g/dL (31-37); MEAN CORPUSCULAR VOLUME 88 fL (79-100); MONO # 0.3 x10^3/uL (0.0-1.1); MONO % 8 % (0-9); NEUT # 1.4 x10^3uL (1.8-7.7); NEUT % 41 % (31-73); PLATELET COUNT 177 x10^3/uL (140-400); RED BLOOD COUNT 2.63 x10^6/uL (3.50-5.40); WHITE BLOOD COUNT 3.5 x10^3/uL (4.0-11.0)
[2017-11-27] MEDS: ALLOPURINOL 100 MG TABLET. PO ×2 (07:54→19:43)
[2017-11-27] MEDS: GABAPENTIN 100 MG CAPSULE. PO ×3 (07:54→19:43)
[2017-11-27] MEDS: MAGNESIUM OXIDE 400 MG TABLET PO ×2 (07:54→19:43)
[2017-11-27] MEDS: PANTOPRAZOLE 40 MG TABLET.DR. PO (07:54)
[2017-11-27] MEDS: ASPIRIN ENTERIC COATED 81 MG TABLET.DR. PO (07:54)
[2017-11-27] MEDS: METOPROLOL SUCC 24HR ER 25 MG TAB.ER.24H. PO (07:55)
[2017-11-27] MEDS: PRENATAL MULTIVITAMIN TABLET. PO (07:55)
[2017-11-27] MEDS: LACTOBACILLUS RHAMNOSUS GG 1 CAPSULE. PO ×2 (07:56→19:43)
[2017-11-27] MEDS: CHOLECALCIFEROL (VITAMIN D3) 1,000 UNIT TABLET PO (07:56)
[2017-11-27] MEDS: amLODIPine BESYLATE 5 MG TABLET PO (07:56)
[2017-11-27] MEDS: VANCOMYCIN 125 MG/2.5 ML ORAL SOLUTION. PO ×4 (07:56→19:42)
[2017-11-27] MEDS: ALPRAZolam 0.25 MG TABLET PO ×2 (10:26→21:05)
[2017-11-27 16:10] LABS: C DIFF BY PCR Positive (Negative)
[2017-11-27] MEDS: traZODone 100 MG TABLET. PO (21:05)
[2017-11-28] MEDS: HYDROcodone/APAP 5/325MG 1 TAB TABLET PO (03:03)
[2017-11-28 05:05] LABS: ADD MAN DIFF? NO
[2017-11-28 05:26] LABS: BASO % 1 % (0-3); EOS # 0.1 x10^3/uL (0.0-0.7); EOS % 2 % (0-3); HEMATOCRIT 28.4 % (36.0-47.0); HEMOGLOBIN 9.5 g/dL (12.0-15.5); LYMPH # 2.2 x10^3/uL (1.0-4.8); LYMPH % 60 % (24-48); MEAN CORPUSCULAR HEMOGLOBIN 30 pg (25-35); MEAN CORPUSCULAR HGB CONC 34 g/dL (31-37); MEAN CORPUSCULAR VOLUME 88 fL (79-100); MONO # 0.2 x10^3/uL (0.0-1.1); MONO % 6 % (0-9); NEUT # 1.2 x10^3uL (1.8-7.7); NEUT % 32 % (31-73); PLATELET COUNT 221 x10^3/uL (140-400); RED BLOOD COUNT 3.22 x10^6/uL (3.50-5.40); RED CELL DISTRIBUTION WIDTH 17.8 % (11.5-14.5); WHITE BLOOD COUNT 3.7 x10^3/uL (4.0-11.0)
[2017-11-28 05:58] LABS: ALBUMIN 1.7 g/dL (3.4-5.0); ALBUMIN/GLOBULIN RATIO 0.5 (1.0-1.7); ALK PHOS 144 U/L (46-116); ALT (SGPT) 27 U/L (14-59); ANION GAP 7 (6-14); AST (SGOT) 48 U/L (15-37); BLOOD UREA NITROGEN 4 mg/dL (7-20); BUN/CREATININE RATIO 4 (6-20); CALCIUM 8.5 mg/dL (8.5-10.1); CARBON DIOXIDE 30 mmol/L (21-32); CHLORIDE 95 mmol/L (98-107); CREATININE 0.9 mg/dL (0.6-1.0); GFR 62.6; GLUCOSE 67 mg/dL (70-99); POTASSIUM 3.7 mmol/L (3.5-5.1); SODIUM 132 mmol/L (136-145); TOTAL BILIRUBIN 0.5 mg/dL (0.2-1.0); TOTAL PROTEIN 5.1 g/dL (6.4-8.2)
[2017-11-28 07:47] LABS: SEDIMENTATION RATE 4 (0-25)
[2017-11-28] MEDS: MAGNESIUM OXIDE 400 MG TABLET PO (08:00)
[2017-11-28] MEDS: ALLOPURINOL 100 MG TABLET. PO (08:00)
[2017-11-28] MEDS: CHOLECALCIFEROL (VITAMIN D3) 1,000 UNIT TABLET PO (08:00)
[2017-11-28] MEDS: ASPIRIN ENTERIC COATED 81 MG TABLET.DR. PO (08:00)
[2017-11-28] MEDS: PRENATAL MULTIVITAMIN TABLET. PO (08:01)
[2017-11-28] MEDS: LACTOBACILLUS RHAMNOSUS GG 1 CAPSULE. PO (08:01)
[2017-11-28] MEDS: PANTOPRAZOLE 40 MG TABLET.DR. PO (08:01)
[2017-11-28] MEDS: GABAPENTIN 100 MG CAPSULE. PO (08:01)
[2017-11-28] MEDS: ALPRAZolam 0.25 MG TABLET PO (08:08)
[2017-11-28] MEDS: METOPROLOL SUCC 24HR ER 25 MG TAB.ER.24H. PO (08:09)
[2017-11-28] MEDS: VANCOMYCIN 125 MG/2.5 ML ORAL SOLUTION. PO (08:09)
[2017-11-28] MEDS: amLODIPine BESYLATE 5 MG TABLET PO (08:10)
== END 2017-11-28 11:55 | disposition home health service (06) | DRG 91 ==
LOC: ER 11:13 → 6 SOUTH 14:46
PROC: 0DBH8ZX Excision of Cecum, Via Natural or Artificial Opening Endoscopic, Diagnostic (ICD-10-PCS; principal; 2017-11-26 13:00)
DX: G92 Toxic encephalopathy (principal); E43 Unspecified severe protein-calorie malnutrition; I42.9 Cardiomyopathy, unspecified; A04.71 Enterocolitis due to Clostridium difficile, recurrent; I50.9 Heart failure, unspecified; K31.84 Gastroparesis; I13.0 Hypertensive heart and chronic kidney disease with heart failure and stage 1 through stage 4 chronic kidney disease, or unspecified chronic kidney disease; N18.3 Chronic kidney disease, stage 3 (moderate); E86.0 Dehydration; Z68.1 Body mass index [BMI] 19.9 or less, adult; N39.0 Urinary tract infection, site not specified; D50.0 Iron deficiency anemia secondary to blood loss (chronic); E78.5 Hyperlipidemia, unspecified; F41.9 Anxiety disorder, unspecified; G31.84 Mild cognitive impairment of uncertain or unknown etiology; G89.29 Other chronic pain; I25.10 Atherosclerotic heart disease of native coronary artery without angina pectoris; K21.9 Gastro-esophageal reflux disease without esophagitis; M79.7 Fibromyalgia; D53.9 Nutritional anemia, unspecified; T50.905A Adverse effect of unspecified drugs, medicaments and biological substances, initial encounter; F32.9 Major depressive disorder, single episode, unspecified; M10.9 Gout, unspecified; M19.90 Unspecified osteoarthritis, unspecified site; Z96.651 Presence of right artificial knee joint; Z90.49 Acquired absence of other specified parts of digestive tract; Z90.710 Acquired absence of both cervix and uterus; Z88.1 Allergy status to other antibiotic agents; Z88.0 Allergy status to penicillin; Z85.43 Personal history of malignant neoplasm of ovary; Z87.11 Personal history of peptic ulcer disease; Z82.49 Family history of ischemic heart disease and other diseases of the circulatory system; Z82.5 Family history of asthma and other chronic lower respiratory diseases; Z83.3 Family history of diabetes mellitus; Z71.89 Other specified counseling
CPT/HCPCS: 36415; 36600; 45380; 70450; 71045; 72125; 74176; 80053; 80307; 81001; 82140; 82550; 82553; 82805; 83605; 83735; 83880; 84132; 84439; 84443; 84481; 84484; 85007; 85025; 85610; 85651; 85730; 87040; 87324; 87641; 93005; 93306; 96360; 97110-GP; 97116-GP; 97165-GO; 99285; 99285-25; J3475; J7030; Q9966

== ENCOUNTER 2018-01-19 08:45 | Inpatient (IN) | payer BC ==
[2018-01-19 09:44] LABS: BILIRUBIN,URINE NEGATIVE (NEG); CLARITY,URINE CLOUDY; COLOR,URINE YELLOW; GLUCOSE,URINE NEGATIVE (NEG); NITRITE,URINE NEGATIVE (NEG); PROTEIN,URINE NEGATIVE (NEG-TRACE); UROBILINOGEN,URINE 0.2 mg/dL (0.2 mg/dL)
[2018-01-19 09:47] LABS: BARBITURATES NEG (NEG); BENZODIAZEPINES NEG (NEG); CANNABINOIDS NEG (NEG); COCAINE NEG (NEG); METHADONE NEG (NEG); OPIATES NEG (NEG); PHENCYCLIDINE NEG (NEG)
[2018-01-19 09:48] LABS: AMPHETAMINE/METHAMPHETAMINE NEG (NEG); ETHANOL, URINE NEG (NEG)
[2018-01-19 10:10] LABS: RBC,URINE >40 /HPF (0-2); WBC,URINE TNTC /HPF (0-4)
[2018-01-19 10:11] LABS: BACTERIA,URINE FEW /HPF (0-FEW); YEAST,URINE PRESENT /HPF
[2018-01-19 10:27] LABS: ADD MAN DIFF? NO
[2018-01-19 10:38] LABS: BASO # 0.1 x10^3/uL (0.0-0.2); BASO % 2 % (0-3); EOS % 0 % (0-3); HEMATOCRIT 32.1 % (36.0-47.0); LYMPH # 1.5 x10^3/uL (1.0-4.8); LYMPH % 22 % (24-48); MEAN CORPUSCULAR HEMOGLOBIN 33 pg (25-35); MEAN CORPUSCULAR HGB CONC 34 g/dL (31-37); MEAN CORPUSCULAR VOLUME 97 fL (79-100); MONO # 0.1 x10^3/uL (0.0-1.1); MONO % 2 % (0-9); NEUT % 74 % (31-73); PLATELET COUNT 311 x10^3/uL (140-400); RED BLOOD COUNT 3.31 x10^6/uL (3.50-5.40); WHITE BLOOD COUNT 6.8 x10^3/uL (4.0-11.0)
[2018-01-19] MEDS ORDERED: ONDANSETRON PF 4 MG/2 ML VIAL. IV (10:45)
[2018-01-19] MEDS ORDERED: fentaNYL PF VIAL 100 MCG/2 ML VIAL IV (10:45)
[2018-01-19 10:51] LABS: ETHANOL < 10 mg/dL (0-10)
[2018-01-19 10:57] LABS: ALBUMIN 1.4 g/dL (3.4-5.0); ALBUMIN/GLOBULIN RATIO 0.4 (1.0-1.7); ALK PHOS 143 U/L (46-116); ALT (SGPT) 41 U/L (14-59); ANION GAP 15 (6-14); AST (SGOT) 46 U/L (15-37); BLOOD UREA NITROGEN 29 mg/dL (7-20); BUN/CREATININE RATIO 9 (6-20); CALCIUM 8.1 mg/dL (8.5-10.1); CARBON DIOXIDE 18 mmol/L (21-32); CHLORIDE 87 mmol/L (98-107); CREATININE 3.1 mg/dL (0.6-1.0); GLUCOSE 73 mg/dL (70-99); LIPASE 52 U/L (73-393); POTASSIUM 3.3 mmol/L (3.5-5.1); TOTAL BILIRUBIN 0.6 mg/dL (0.2-1.0); TOTAL PROTEIN 4.7 g/dL (6.4-8.2)
[2018-01-19 10:58] LABS: SODIUM 120 mmol/L (136-145)
[2018-01-19 11:04] LABS: FREE T4 0.71 ng/dL (0.76-1.46)
[2018-01-19 11:04] LABS: THYROID STIM HORMONE (TSH) 8.263 uIU/mL (0.358-3.74)
[2018-01-19] MEDS: IV NORMAL SALINE 1000ML BAG 1,000 ML IV ×3 (11:15→14:47)
[2018-01-19] MEDS ORDERED: LIDOCAINE 2% 20 ML VIAL. (11:25)
[2018-01-19] MEDS: PANTOPRAZOLE IV PUSH 40 MG VIAL. IVP ×2 (11:30→12:32)
[2018-01-19] MEDS: LIDOCAINE 2% PF Vial for OR 5 ML VIAL. IJ (11:45)
[2018-01-19] MEDS: ONDANSETRON PF 4 MG/2 ML VIAL. IV (12:31)
[2018-01-19] MEDS: VANCOMYCIN 125 MG/2.5 ML ORAL SOLUTION. PO ×3 (18:00→21:21)
[2018-01-19] MEDS ORDERED: MICAFUNGIN 100 MG in IV DEXTROSE 5% 100ML 100 ML IV (18:00)
[2018-01-19] MEDS: NOREPINEPHRIN 8MG/250ML PREMIX 250 ML IV (18:10)
[2018-01-19] MEDS: MEROPENEM 500 MG in IV NORMAL SALINE 50ML 50 ML IV (18:10)
[2018-01-19 20:01] LABS: HEMATOCRIT 27.6 % (36.0-47.0); HEMOGLOBIN 9.1 g/dL (12.0-15.5); MEAN CORPUSCULAR HEMOGLOBIN 32 pg (25-35); MEAN CORPUSCULAR HGB CONC 33 g/dL (31-37); MEAN CORPUSCULAR VOLUME 98 fL (79-100); PLATELET COUNT 324 x10^3/uL (140-400); RED BLOOD COUNT 2.83 x10^6/uL (3.50-5.40); RED CELL DISTRIBUTION WIDTH 16.8 % (11.5-14.5)
[2018-01-19 20:19] LABS: ANION GAP 14 (6-14); BLOOD UREA NITROGEN 24 mg/dL (7-20); CALCIUM 6.8 mg/dL (8.5-10.1); CARBON DIOXIDE 18 mmol/L (21-32); CHLORIDE 97 mmol/L (98-107); CREATININE 2.6 mg/dL (0.6-1.0); GFR 18.4; GLUCOSE 82 mg/dL (70-99); MAGNESIUM 1.5 mg/dL (1.8-2.4); PHOSPHORUS 2.7 mg/dL (2.6-4.7); SODIUM 129 mmol/L (136-145)
[2018-01-19 20:28] LABS: LACTIC ACID < 0.3 mmol/L (0.4-2.0)
[2018-01-19] MEDS: MICAFUNGIN 100 MG in IV NORMAL SALINE 100ML 100 ML IV (20:47)
[2018-01-19] MEDS: MAGNESIUM SULFATE 2GM 50 ML IV (23:13)
[2018-01-19] MEDS: CALCIUM CHLORIDE 1,000 MG/10 ML DISP.SYRIN IVP (23:14)
[2018-01-19] MEDS: POTASSIUM CHLORIDE 40 MEQ in IV NORMAL SALINE 1000ML BAG 1,000 ML IV (23:14)
[2018-01-20 04:57] LABS: ADD MAN DIFF? NO
[2018-01-20 05:33] LABS: BASO % 0 % (0-3); EOS % 0 % (0-3); HEMATOCRIT 27.6 % (36.0-47.0); HEMOGLOBIN 9.2 g/dL (12.0-15.5); LYMPH # 0.9 x10^3/uL (1.0-4.8); LYMPH % 13 % (24-48); MEAN CORPUSCULAR HEMOGLOBIN 33 pg (25-35); MEAN CORPUSCULAR HGB CONC 33 g/dL (31-37); MEAN CORPUSCULAR VOLUME 98 fL (79-100); MONO # 0.1 x10^3/uL (0.0-1.1); MONO % 2 % (0-9); NEUT % 85 % (31-73); PLATELET COUNT 318 x10^3/uL (140-400); RED BLOOD COUNT 2.82 x10^6/uL (3.50-5.40); RED CELL DISTRIBUTION WIDTH 16.6 % (11.5-14.5); WHITE BLOOD COUNT 7.1 x10^3/uL (4.0-11.0)
[2018-01-20 05:43] LABS: ALBUMIN 1.1 g/dL (3.4-5.0); ALBUMIN/GLOBULIN RATIO 0.4 (1.0-1.7); ALK PHOS 124 U/L (46-116); ALT (SGPT) 36 U/L (14-59); ANION GAP 16 (6-14); AST (SGOT) 38 U/L (15-37); BLOOD UREA NITROGEN 23 mg/dL (7-20); BUN/CREATININE RATIO 9 (6-20); CALCIUM 7.5 mg/dL (8.5-10.1); CHLORIDE 100 mmol/L (98-107); CREATININE 2.5 mg/dL (0.6-1.0); GFR 19.3; GLUCOSE 151 mg/dL (70-99); POTASSIUM 3.8 mmol/L (3.5-5.1); SODIUM 127 mmol/L (136-145); TOTAL BILIRUBIN 0.5 mg/dL (0.2-1.0)
[2018-01-20 05:50] LABS: CARBON DIOXIDE 11 mmol/L (21-32)
[2018-01-20] MEDS: IV NORMAL SALINE 1000ML BAG 1,000 ML IV ×3 (06:22→21:15)
[2018-01-20] MEDS: SODIUM BICARB ADULT 8.4% 50 MEQ/50 ML DISP.SYRIN. IV (06:56)
[2018-01-20] MEDS: IV RINGERS,LACTATED 1000ML 1,000 ML IV ×2 (06:59→15:00)
[2018-01-20 08:17] LABS: MAGNESIUM 2.2 mg/dL (1.8-2.4)
[2018-01-20] MEDS ORDERED: LOPERAMIDE 2 MG CAPSULE PO (08:30)
[2018-01-20] MEDS ORDERED: ONDANSETRON ODT 4 MG TAB.RAPDIS. PO (08:30)
[2018-01-20] MEDS ORDERED: ACETAMINOPHEN 500 MG TABLET PO (08:30)
[2018-01-20] MEDS: HEPARIN PF for SUB-Q USE 5,000 UNIT/0.5 ML VIAL. SQ ×3 (08:30→21:04)
[2018-01-20] MEDS ORDERED: cefTRIAXone IV Push 1 GM VIAL. IVP (09:00)
[2018-01-20] MEDS: ASPIRIN ENTERIC COATED 81 MG TABLET.DR. PO (09:52)
[2018-01-20] MEDS: PANTOPRAZOLE 40 MG TABLET.DR. PO (09:52)
[2018-01-20] MEDS: MAGNESIUM OXIDE 400 MG TABLET PO ×2 (09:52→21:02)
[2018-01-20] MEDS: LACTOBACILLUS RHAMNOSUS GG 1 CAPSULE. PO ×2 (09:52→21:03)
[2018-01-20] MEDS: COLESTIPOL HCL 1 GM TABLET PO ×2 (09:52→21:02)
[2018-01-20] MEDS: ALLOPURINOL 100 MG TABLET. PO ×2 (09:52→21:02)
[2018-01-20] MEDS: MULTIVITAMIN with MINERAL TABLET. PO (09:52)
[2018-01-20] MEDS: CHOLECALCIFEROL (VITAMIN D3) 1,000 UNIT TABLET PO (09:52)
[2018-01-20] MEDS: SODIUM BICARBONATE VIAL 50 MEQ in IV 1/2 NORMAL SALINE 1,000 ML IV (09:54)
[2018-01-20] MEDS: ONDANSETRON ODT 4 MG TAB.RAPDIS. PO ×3 (12:00→21:03)
[2018-01-20] MEDS: MEROPENEM 500 MG in IV NORMAL SALINE 50ML 50 ML IV (15:12)
[2018-01-20 19:09] LABS: MRSA BY PCR Positive (Negative)
[2018-01-20] MEDS: MICAFUNGIN 100 MG in IV NORMAL SALINE 100ML 100 ML IV (21:03)
[2018-01-21] MEDS: IV NORMAL SALINE 1000ML BAG 1,000 ML IV ×2 (04:30→14:30)
[2018-01-21] MEDS: ONDANSETRON PF 4 MG/2 ML VIAL. IV (05:53)
[2018-01-21] MEDS: HEPARIN PF for SUB-Q USE 5,000 UNIT/0.5 ML VIAL. SQ ×3 (05:55→22:31)
[2018-01-21] MEDS: ONDANSETRON ODT 4 MG TAB.RAPDIS. PO ×4 (06:00→22:31)
[2018-01-21 07:59] LABS: ANION GAP 17 (6-14); BLOOD UREA NITROGEN 21 mg/dL (7-20); CALCIUM 7.3 mg/dL (8.5-10.1); CARBON DIOXIDE 16 mmol/L (21-32); CHLORIDE 97 mmol/L (98-107); CREATININE 2.4 mg/dL (0.6-1.0); GFR 20.2; GLUCOSE 148 mg/dL (70-99); POTASSIUM 3.6 mmol/L (3.5-5.1); SODIUM 130 mmol/L (136-145)
[2018-01-21 08:16] LABS: ADD MAN DIFF? NO
[2018-01-21 08:24] LABS: BASO # 0.1 x10^3/uL (0.0-0.2); BASO % 2 % (0-3); EOS % 1 % (0-3); HEMATOCRIT 32.2 % (36.0-47.0); HEMOGLOBIN 10.9 g/dL (12.0-15.5); LYMPH # 1.8 x10^3/uL (1.0-4.8); LYMPH % 25 % (24-48); MEAN CORPUSCULAR HEMOGLOBIN 33 pg (25-35); MEAN CORPUSCULAR HGB CONC 34 g/dL (31-37); MEAN CORPUSCULAR VOLUME 98 fL (79-100); MONO # 0.1 x10^3/uL (0.0-1.1); MONO % 2 % (0-9); NEUT % 71 % (31-73); PLATELET COUNT 283 x10^3/uL (140-400); RED CELL DISTRIBUTION WIDTH 17.3 % (11.5-14.5); WHITE BLOOD COUNT 7.1 x10^3/uL (4.0-11.0)
[2018-01-21] MEDS: MAGNESIUM OXIDE 400 MG TABLET PO ×2 (09:32→20:30)
[2018-01-21] MEDS: CHOLECALCIFEROL (VITAMIN D3) 1,000 UNIT TABLET PO (09:32)
[2018-01-21] MEDS: ASPIRIN ENTERIC COATED 81 MG TABLET.DR. PO (09:32)
[2018-01-21] MEDS: COLESTIPOL HCL 1 GM TABLET PO ×2 (09:32→22:17)
[2018-01-21] MEDS: MULTIVITAMIN with MINERAL TABLET. PO (09:32)
[2018-01-21] MEDS: PANTOPRAZOLE 40 MG TABLET.DR. PO (09:32)
[2018-01-21] MEDS: LACTOBACILLUS RHAMNOSUS GG 1 CAPSULE. PO ×2 (09:32→20:30)
[2018-01-21] MEDS: ALLOPURINOL 100 MG TABLET. PO ×2 (09:33→20:31)
[2018-01-21 10:35] LABS: RETIC COUNT 1.9 % (0.5-2.5)
[2018-01-21 10:52] LABS: % SAT IRON 85 % (15-34); IRON,SERUM 40 ug/dL (50-170)
[2018-01-21 11:29] LABS: FERRITIN 2361 ng/mL (8-252)
[2018-01-21] MEDS: IV RINGERS,LACTATED 1000ML 1,000 ML IV (17:52)
[2018-01-21] MEDS: MEROPENEM 500 MG in IV NORMAL SALINE 50ML 50 ML IV (17:53)
[2018-01-21] MEDS: ACETAMINOPHEN 500 MG TABLET PO (17:53)
[2018-01-21] MEDS: MICAFUNGIN 100 MG in IV NORMAL SALINE 100ML 100 ML IV (20:28)
[2018-01-21] MEDS: VITS A & D/LANOLIN TOPICAL OINTMENT 56GM TUBE. TP (20:31)
[2018-01-21] MEDS: NYSTATIN TOPICAL POWDER 15GM BOTTLE. TP (20:31)
[2018-01-22] MEDS: IV RINGERS,LACTATED 1000ML 1,000 ML IV ×2 (05:38→08:20)
[2018-01-22] MEDS: ONDANSETRON ODT 4 MG TAB.RAPDIS. PO ×3 (05:51→12:26)
[2018-01-22] MEDS: HEPARIN PF for SUB-Q USE 5,000 UNIT/0.5 ML VIAL. SQ ×3 (05:51→22:19)
[2018-01-22 06:01] LABS: ADD MAN DIFF? NO
[2018-01-22 06:03] LABS: BASO # 0.1 x10^3/uL (0.0-0.2); BASO % 2 % (0-3); EOS # 0.1 x10^3/uL (0.0-0.7); EOS % 1 % (0-3); HEMATOCRIT 30.8 % (36.0-47.0); HEMOGLOBIN 10.5 g/dL (12.0-15.5); LYMPH # 1.8 x10^3/uL (1.0-4.8); LYMPH % 25 % (24-48); MEAN CORPUSCULAR HEMOGLOBIN 33 pg (25-35); MEAN CORPUSCULAR HGB CONC 34 g/dL (31-37); MEAN CORPUSCULAR VOLUME 97 fL (79-100); MONO # 0.1 x10^3/uL (0.0-1.1); MONO % 2 % (0-9); NEUT % 71 % (31-73); PLATELET COUNT 282 x10^3/uL (140-400); RED BLOOD COUNT 3.19 x10^6/uL (3.50-5.40); RED CELL DISTRIBUTION WIDTH 17.4 % (11.5-14.5); WHITE BLOOD COUNT 7.1 x10^3/uL (4.0-11.0)
[2018-01-22 06:52] LABS: ANION GAP 8 (6-14); BLOOD UREA NITROGEN 18 mg/dL (7-20); CALCIUM 7.2 mg/dL (8.5-10.1); CARBON DIOXIDE 20 mmol/L (21-32); CHLORIDE 98 mmol/L (98-107); CREATININE 2.3 mg/dL (0.6-1.0); GFR 21.2; GLUCOSE 176 mg/dL (70-99); POTASSIUM 3.2 mmol/L (3.5-5.1); SODIUM 126 mmol/L (136-145)
[2018-01-22] MEDS: MULTIVITAMIN with MINERAL TABLET. PO (08:14)
[2018-01-22] MEDS: ASPIRIN ENTERIC COATED 81 MG TABLET.DR. PO (08:14)
[2018-01-22] MEDS: COLESTIPOL HCL 1 GM TABLET PO ×2 (08:14→22:09)
[2018-01-22] MEDS: CHOLECALCIFEROL (VITAMIN D3) 1,000 UNIT TABLET PO (08:14)
[2018-01-22] MEDS: PANTOPRAZOLE 40 MG TABLET.DR. PO (08:14)
[2018-01-22] MEDS: LACTOBACILLUS RHAMNOSUS GG 1 CAPSULE. PO ×2 (08:14→22:09)
[2018-01-22] MEDS: ALLOPURINOL 100 MG TABLET. PO ×2 (08:14→22:09)
[2018-01-22] MEDS: MAGNESIUM OXIDE 400 MG TABLET PO ×2 (08:14→22:09)
[2018-01-22] MEDS: VITS A & D/LANOLIN TOPICAL OINTMENT 56GM TUBE. TP ×3 (08:22→23:14)
[2018-01-22] MEDS: NYSTATIN TOPICAL POWDER 15GM BOTTLE. TP ×3 (08:22→23:14)
[2018-01-22] MEDS: SODIUM BICARB ADULT 8.4% 50 MEQ/50 ML DISP.SYRIN. IV (11:15)
[2018-01-22] MEDS: AMINO AC 3%/ELECTROLYTE/GLYCER 1,000 ML IV ×2 (11:50→23:14)
[2018-01-22] MEDS: POTASSIUM CHLORIDE 20MEQ 50 ML IV (14:12)
[2018-01-22] MEDS: MEROPENEM 500 MG in IV NORMAL SALINE 50ML 50 ML IV (16:50)
[2018-01-22] MEDS: MICAFUNGIN 100 MG in IV NORMAL SALINE 100ML 100 ML IV (23:23)
[2018-01-22 23:48] LABS: POC GLUCOSE 215 mg/dL (70-99)
[2018-01-23] MEDS: ONDANSETRON ODT 4 MG TAB.RAPDIS. PO ×5 (02:14→23:48)
[2018-01-23] MEDS: HEPARIN PF for SUB-Q USE 5,000 UNIT/0.5 ML VIAL. SQ ×3 (05:26→21:53)
[2018-01-23 05:44] LABS: BASO # 0.1 x10^3/uL (0.0-0.2); BASO % 1 % (0-3); EOS % 0 % (0-3); HEMATOCRIT 33.9 % (36.0-47.0); HEMOGLOBIN 11.3 g/dL (12.0-15.5); LYMPH % 10 % (24-48); MEAN CORPUSCULAR HEMOGLOBIN 32 pg (25-35); MEAN CORPUSCULAR HGB CONC 33 g/dL (31-37); MEAN CORPUSCULAR VOLUME 97 fL (79-100); MONO # 0.1 x10^3/uL (0.0-1.1); MONO % 1 % (0-9); NEUT % 88 % (31-73); PLATELET COUNT 315 x10^3/uL (140-400); RED BLOOD COUNT 3.51 x10^6/uL (3.50-5.40); RED CELL DISTRIBUTION WIDTH 17.3 % (11.5-14.5); WHITE BLOOD COUNT 10.3 x10^3/uL (4.0-11.0)
[2018-01-23 05:45] LABS: POC GLUCOSE 199 mg/dL (70-99)
[2018-01-23 06:07] LABS: ALBUMIN 1.1 g/dL (3.4-5.0); ALBUMIN/GLOBULIN RATIO 0.3 (1.0-1.7); ALK PHOS 144 U/L (46-116); ALT (SGPT) 37 U/L (14-59); ANION GAP 10 (6-14); AST (SGOT) 44 U/L (15-37); BLOOD UREA NITROGEN 17 mg/dL (7-20); BUN/CREATININE RATIO 8 (6-20); CALCIUM 7.4 mg/dL (8.5-10.1); CARBON DIOXIDE 19 mmol/L (21-32); CHLORIDE 95 mmol/L (98-107); CREATININE 2.2 mg/dL (0.6-1.0); GFR 22.3; GLUCOSE 196 mg/dL (70-99); POTASSIUM 4.1 mmol/L (3.5-5.1); SODIUM 124 mmol/L (136-145); TOTAL BILIRUBIN 0.7 mg/dL (0.2-1.0); TOTAL PROTEIN 4.3 g/dL (6.4-8.2)
[2018-01-23 06:29] LABS: ADD MAN DIFF? YES
[2018-01-23 08:16] LABS: % BANDS 2 % (0-9); % LYMPHS 5 % (24-48); % MONOS 1 % (0-10); % SEGS 92 % (35-66); PLT ESTIMATE ADEQUATE (ADEQUATE)
[2018-01-23] MEDS: AMINO AC 3%/ELECTROLYTE/GLYCER 1,000 ML IV ×2 (08:18→20:21)
[2018-01-23] MEDS: MULTIVITAMIN with MINERAL TABLET. PO (08:20)
[2018-01-23] MEDS: PANTOPRAZOLE 40 MG TABLET.DR. PO (08:20)
[2018-01-23] MEDS: CHOLECALCIFEROL (VITAMIN D3) 1,000 UNIT TABLET PO (08:20)
[2018-01-23] MEDS: LACTOBACILLUS RHAMNOSUS GG 1 CAPSULE. PO ×2 (08:20→20:22)
[2018-01-23] MEDS: ASPIRIN ENTERIC COATED 81 MG TABLET.DR. PO (08:20)
[2018-01-23] MEDS: COLESTIPOL HCL 1 GM TABLET PO ×2 (08:20→21:44)
[2018-01-23] MEDS: MAGNESIUM OXIDE 400 MG TABLET PO ×2 (08:20→20:22)
[2018-01-23] MEDS: ALLOPURINOL 100 MG TABLET. PO ×2 (08:20→20:22)
[2018-01-23 11:04] LABS: TROPONINI 0.065 ng/mL (0.000-0.055)
[2018-01-23] MEDS: NITROGLYCERIN OINT 1 GM PACKET. TP ×3 (11:30→23:50)
[2018-01-23 11:39] LABS: POC GLUCOSE 193 mg/dL (70-99)
[2018-01-23] MEDS ORDERED: NITROGLYCERIN OINT 1 GM PACKET. TP (12:00)
[2018-01-23] MEDS: MEROPENEM 500 MG in IV NORMAL SALINE 50ML 50 ML IV (16:23)
[2018-01-23 16:51] LABS: TROPONINI 0.078 ng/mL (0.000-0.055)
[2018-01-23 17:02] LABS: POC GLUCOSE 183 mg/dL (70-99)
[2018-01-23 20:12] LABS: TROPONINI 0.083 ng/mL (0.000-0.055)
[2018-01-23] MEDS: MICAFUNGIN 100 MG in IV NORMAL SALINE 100ML 100 ML IV (20:21)
[2018-01-23] MEDS: NYSTATIN TOPICAL POWDER 15GM BOTTLE. TP (20:22)
[2018-01-23] MEDS: VITS A & D/LANOLIN TOPICAL OINTMENT 56GM TUBE. TP (20:22)
[2018-01-24 00:25] LABS: POC GLUCOSE 189 mg/dL (70-99)
[2018-01-24] MEDS: NITROGLYCERIN OINT 1 GM PACKET. TP ×3 (05:38→18:00)
[2018-01-24] MEDS: ONDANSETRON ODT 4 MG TAB.RAPDIS. PO ×3 (05:38→18:00)
[2018-01-24] MEDS: HEPARIN PF for SUB-Q USE 5,000 UNIT/0.5 ML VIAL. SQ ×3 (05:45→21:46)
[2018-01-24 05:56] LABS: POC GLUCOSE 149 mg/dL (70-99)
[2018-01-24 06:02] LABS: HEMATOCRIT 30.6 % (36.0-47.0); HEMOGLOBIN 10.2 g/dL (12.0-15.5); MEAN CORPUSCULAR HEMOGLOBIN 32 pg (25-35); MEAN CORPUSCULAR HGB CONC 34 g/dL (31-37); MEAN CORPUSCULAR VOLUME 97 fL (79-100); PLATELET COUNT 250 x10^3/uL (140-400); RED BLOOD COUNT 3.16 x10^6/uL (3.50-5.40); RED CELL DISTRIBUTION WIDTH 17.1 % (11.5-14.5); WHITE BLOOD COUNT 9.3 x10^3/uL (4.0-11.0)
[2018-01-24 06:13] LABS: ANION GAP 9 (6-14); BLOOD UREA NITROGEN 20 mg/dL (7-20); CALCIUM 7.3 mg/dL (8.5-10.1); CARBON DIOXIDE 17 mmol/L (21-32); CHLORIDE 90 mmol/L (98-107); CREATININE 2.2 mg/dL (0.6-1.0); GFR 22.3; GLUCOSE 157 mg/dL (70-99)
[2018-01-24] MEDS: IV NORMAL SALINE 1000ML BAG 1,000 ML IV (08:07)
[2018-01-24] MEDS: LACTOBACILLUS RHAMNOSUS GG 1 CAPSULE. PO ×2 (08:08→20:08)
[2018-01-24] MEDS: MULTIVITAMIN with MINERAL TABLET. PO (08:08)
[2018-01-24] MEDS: MAGNESIUM OXIDE 400 MG TABLET PO ×2 (08:08→20:08)
[2018-01-24] MEDS: ALLOPURINOL 100 MG TABLET. PO ×2 (08:08→20:08)
[2018-01-24] MEDS: CHOLECALCIFEROL (VITAMIN D3) 1,000 UNIT TABLET PO (08:08)
[2018-01-24] MEDS: PANTOPRAZOLE 40 MG TABLET.DR. PO (08:08)
[2018-01-24] MEDS: ASPIRIN ENTERIC COATED 81 MG TABLET.DR. PO (08:08)
[2018-01-24] MEDS: COLESTIPOL HCL 1 GM TABLET PO ×2 (08:08→20:08)
[2018-01-24] MEDS: NYSTATIN TOPICAL POWDER 15GM BOTTLE. TP ×2 (08:09→20:28)
[2018-01-24] MEDS: VITS A & D/LANOLIN TOPICAL OINTMENT 56GM TUBE. TP ×2 (08:09→20:28)
[2018-01-24 08:24] LABS: POC GLUCOSE 146 mg/dL (70-99)
[2018-01-24] MEDS: AMINO AC 3%/ELECTROLYTE/GLYCER 1,000 ML IV (11:30)
[2018-01-24 12:28] LABS: POC GLUCOSE 189 mg/dL (70-99)
[2018-01-24 12:55] LABS: BILIRUBIN,URINE SMALL (NEG); CLARITY,URINE CLEAR; COLOR,URINE AMBER; GLUCOSE,URINE NEGATIVE (NEG); NITRITE,URINE NEGATIVE (NEG); PH,URINE 5.5; PROTEIN,URINE 30 mg/dL (NEG-TRACE); UROBILINOGEN,URINE 0.2 mg/dL (0.2 mg/dL)
[2018-01-24 13:06] LABS: BACTERIA,URINE FEW /HPF (0-FEW); SQUAMOUS EPITHELIAL CELL,UR FEW /LPF
[2018-01-24 13:07] LABS: HYALINE CASTS, URINE FEW /HPF
[2018-01-24 15:45] LABS: ANION GAP 13 (6-14); BLOOD UREA NITROGEN 20 mg/dL (7-20); CALCIUM 7.4 mg/dL (8.5-10.1); CARBON DIOXIDE 17 mmol/L (21-32); CHLORIDE 90 mmol/L (98-107); CREATININE 2.1 mg/dL (0.6-1.0); GFR 23.6; GLUCOSE 152 mg/dL (70-99); POTASSIUM 4.9 mmol/L (3.5-5.1)
[2018-01-24] MEDS: SODIUM BICARBONATE VIAL 150 MEQ in IV DEXTROSE 5% 1,000 ML IV (15:46)
[2018-01-24 15:49] LABS: SODIUM 120 mmol/L (136-145)
[2018-01-24] MEDS ORDERED: SODIUM CHLORIDE 3 % 500 ML IV (17:00)
[2018-01-24 17:52] LABS: POC GLUCOSE 128 mg/dL (70-99)
[2018-01-24] MEDS: MEROPENEM 500 MG in IV NORMAL SALINE 50ML 50 ML IV (19:27)
[2018-01-24] MEDS: MICAFUNGIN 100 MG in IV NORMAL SALINE 100ML 100 ML IV (20:24)
[2018-01-25] MEDS: NITROGLYCERIN OINT 1 GM PACKET. TP ×4 (00:36→17:07)
[2018-01-25] MEDS: AMINO AC 3%/ELECTROLYTE/GLYCER 1,000 ML IV ×2 (01:58→16:27)
[2018-01-25 05:38] LABS: POC GLUCOSE 126 mg/dL (70-99)
[2018-01-25] MEDS: HEPARIN PF for SUB-Q USE 5,000 UNIT/0.5 ML VIAL. SQ (05:38)
[2018-01-25] MEDS: ONDANSETRON ODT 4 MG TAB.RAPDIS. PO ×2 (05:38)
[2018-01-25] MEDS: SODIUM BICARBONATE VIAL 150 MEQ in IV DEXTROSE 5% 1,000 ML IV ×2 (10:41→23:52)
[2018-01-25 11:40] LABS: ALBUMIN 1.2 g/dL (3.4-5.0); ALBUMIN/GLOBULIN RATIO 0.4 (1.0-1.7); ALK PHOS 206 U/L (46-116); ALT (SGPT) 32 U/L (14-59); ANION GAP 11 (6-14); AST (SGOT) 49 U/L (15-37); BLOOD UREA NITROGEN 23 mg/dL (7-20); BUN/CREATININE RATIO 11 (6-20); CALCIUM 7.3 mg/dL (8.5-10.1); CARBON DIOXIDE 17 mmol/L (21-32); CHLORIDE 91 mmol/L (98-107); CREATININE 2.1 mg/dL (0.6-1.0); GFR 23.6; GLUCOSE 117 mg/dL (70-99); TOTAL BILIRUBIN 0.5 mg/dL (0.2-1.0); TOTAL PROTEIN 3.9 g/dL (6.4-8.2)
[2018-01-25 11:43] LABS: POTASSIUM 5.5 mmol/L (3.5-5.1)
[2018-01-25 11:45] LABS: SODIUM 119 mmol/L (136-145)
[2018-01-25] MEDS ORDERED: MORPHINE SULFATE 20 MG/ML CONC SOLUTION. SL (12:45)
[2018-01-25] MEDS ORDERED: LORazepam INTENSOL 2 MG/ML ORAL.CONC SL (12:45)
[2018-01-25] MEDS: NYSTATIN TOPICAL POWDER 15GM BOTTLE. TP ×2 (16:23→21:00)
[2018-01-25] MEDS: VITS A & D/LANOLIN TOPICAL OINTMENT 56GM TUBE. TP ×2 (16:23→21:00)
[2018-01-25] MEDS: MEROPENEM 500 MG in IV NORMAL SALINE 50ML 50 ML IV (16:27)
[2018-01-25] MEDS: MICAFUNGIN 100 MG in IV NORMAL SALINE 100ML 100 ML IV (20:00)
[2018-01-26] MEDS: NITROGLYCERIN OINT 1 GM PACKET. TP ×3 (06:00→12:56)
[2018-01-26 06:17] LABS: URIC ACID 3.2 mg/dL (2.6-6.0)
[2018-01-26] MEDS: NYSTATIN TOPICAL POWDER 15GM BOTTLE. TP (12:56)
[2018-01-26] MEDS: VITS A & D/LANOLIN TOPICAL OINTMENT 56GM TUBE. TP (12:56)
[2018-01-26] MEDS: ALBUMIN HUMAN 25% 100 ML IV ×2 (13:27→13:28)
[2018-01-26 14:18] LABS: SODIUM, URINE <60 mmol/L (Not Estab.)
[2018-01-26] MEDS: MORPHINE SULFATE 2 MG/ML DISP.SYRIN. IV (15:31)
[2018-01-28 13:20] LABS: URINE OSMOLALITY 275 mOsmol/kg (.)
[2018-01-28 13:20] LABS: URINE OSMOLALITY 297 mOsmol/kg (.)
[2018-01-28 13:53] LABS: SODIUM 116 mmol/L (136-145)
== END 2018-01-26 14:00 | disposition home or self-care (01) | DRG 871 ==
LOC: ER 08:45 → 5 NORTH 01-21 17:40 → 4 NORTH 10:28 → 1 WEST ICU 14:44
PROC: 05HM33Z Insertion of Infusion Device into Right Internal Jugular Vein, Percutaneous Approach (ICD-10-PCS; principal; 2018-01-21)
PROC: B543ZZA Ultrasonography of Right Jugular Veins, Guidance (ICD-10-PCS; 2018-01-21)
DX: A41.9 Sepsis, unspecified organism (principal); R65.21 Severe sepsis with septic shock; N17.0 Acute kidney failure with tubular necrosis; G93.41 Metabolic encephalopathy; E43 Unspecified severe protein-calorie malnutrition; E87.1 Hypo-osmolality and hyponatremia; K56.7 Ileus, unspecified; B37.49 Other urogenital candidiasis; I47.1 Supraventricular tachycardia; I42.9 Cardiomyopathy, unspecified; A04.71 Enterocolitis due to Clostridium difficile, recurrent; F41.9 Anxiety disorder, unspecified; F32.9 Major depressive disorder, single episode, unspecified; K21.9 Gastro-esophageal reflux disease without esophagitis; Z66 Do not resuscitate; G89.29 Other chronic pain; Z96.651 Presence of right artificial knee joint; M79.7 Fibromyalgia; E86.0 Dehydration; M19.90 Unspecified osteoarthritis, unspecified site; M10.9 Gout, unspecified; N18.9 Chronic kidney disease, unspecified; E78.5 Hyperlipidemia, unspecified; E87.6 Hypokalemia; E83.42 Hypomagnesemia; E83.51 Hypocalcemia; Z51.5 Encounter for palliative care; K76.0 Fatty (change of) liver, not elsewhere classified; N28.1 Cyst of kidney, acquired; E87.5 Hyperkalemia; D63.8 Anemia in other chronic diseases classified elsewhere; I12.9 Hypertensive chronic kidney disease with stage 1 through stage 4 chronic kidney disease, or unspecified chronic kidney disease; I34.1 Nonrheumatic mitral (valve) prolapse; R13.10 Dysphagia, unspecified; G62.9 Polyneuropathy, unspecified; Z85.43 Personal history of malignant neoplasm of ovary; Z90.49 Acquired absence of other specified parts of digestive tract; Z90.710 Acquired absence of both cervix and uterus; Z88.0 Allergy status to penicillin; Z88.1 Allergy status to other antibiotic agents; Z82.49 Family history of ischemic heart disease and other diseases of the circulatory system; Z87.11 Personal history of peptic ulcer disease; Z82.5 Family history of asthma and other chronic lower respiratory diseases; Z83.3 Family history of diabetes mellitus
CPT/HCPCS: 36415; 36556; 51701; 71045; 74022; 74176; 76857; 76937; 80048; 80053; 80307; 81001; 81256; 82533; 82728; 82962; 83540; 83550; 83605; 83690; 83735; 83930; 83935; 84100; 84300; 84439; 84443; 84481; 84484; 84550; 85007; 85025; 85027; 85045; 87040; 87086; 87641; 93005; 96361; 96365; 96375; 96376; 97163-GP; 97166-GO; 99285; 99285-25; C1892; C9113; G0480; J0690; J2020; J2185; J2248; J2270; J2405; J3475; J3480; J3490; J7030; J7120; P9046; Q0162